=== PATIENT | male | born 1950 | race Caucasian/White ===

== ENCOUNTER 2023-04-24 05:22 | Day surgery (SDC) | payer MEDICARE, OTHER, SELFPAY ==
[2023-04-24] VITALS (9 sets, daily range): BP systolic 101–150; BP diastolic 61–85; PULSE 53–84; RESP 16; TEMP 36–36.6; O2SAT 94–100; BMI 27.6
--- OUTSIDE RECORDS SUMMARY | 2023-04-24 05:40 | XMS RPT_ITS | CCD ---
Author Name Unknown Address [address] [facility] [facility] [id number] [place] [address] Organization [facility] Care Team Providers Care Fireman Name Role Phone Unavailable Unavailable Em PLUNKETT MD, ARIN Lewis Primary Care Physician [phone] ADDI Alcazar Attending JOURDAN Storey Consulting Em PLUNKETT MD, ARIN Lewis Primary [facility] Rebecca emery PHYSICIAN, NONE Attending Em PLUNKETT MD, ARIN Primary [facility] BA Boss DO Attending Em PLUNKETT MD, ARIN Lewis Primary Care BA Boss DO Attending Em ALEJANDRO PA-C, JUSTICE Fuentes Attending Em PLUNKETT MD, [facility] Primary [facility] Rebecca DILLON MD, DR SHIRLEY Umaña Attending Jesica Rosario MD, [facility] Primary [facility] UnavailITZEL Powers PA-C Attending Em PLUNKETT MD, [facility] Primary Care Rebecca PLUNKETT MD, ARIN Lewis Attending Rebecca PLUNKETT MD, [facility] Primary Care Rebecca PLUNKETT MD, ARIN Attending Rebecca PLUNKETT MD, [facility] Primary Care Unavailtania QUICK MD, DR RODRIGUEZ Attending Jesica Rosario MD, [facility] Primary [facility] Rebecca PLUNKETT MD, [facility] Primary Care ITZEL Nino PA-C Attending Em PLUNKETT MD, [facility] Primary Care Rebecca PLUNKETT MD, ARIN Lewis Attending Rebecca PLUNKETT MD, [facility] Primary [facility] BA Boss DO Attending Em QUICK MD, DR RODRIGUEZ Attending Jesica Rosario MD, [facility] Primary [facility] Unavailtania emery Allergies Allergy Classification Reported Allergen(s) Allergy Type Date of Onset Reaction(s) Facility (2 sources) ibuprofen Drug Allergy 5 RASH AND SWELLING [facility] (1 source) Ibuprofen Drug Allergy [facility] [place] Repository Medications Current Medications Medication Drug Class(es) Dates Sig (Normalized) Sig (Original) amLODIPine 5 mg oral tablet (1 source) Dihydropyridine Calcium Channel Justo Start: 03-26-2023 amLODIPine 5 mg oral tablet Dose : 5 mg = 1 tab(s), Oral, qDay, # 90 tab(s), 3 Refill(s), Pharmacy: [facility], 170.2, cm, 03/26/23 14:58:00 EST, Height, kg, 03/26/23 14:58:00 EST, Dosing Weight Start Date: 03/26/23 Status: Ordered aspirin 81 mg delayed release oral tablet (4 sources) Platelet Aggregation Inhibitor, Nonsteroidal Anti-inflammatory Drug Start: 04-05-2022 aspirin 81 mg oral delayed release tablet Dose : 81 mg = 1 tab(s), Oral, qDay Start Date: 04/05/22 Status: Ordered Completed/Discontinued Medications Medication Drug Class(es) Dates Sig (Normalized) Sig (Original) [Cholesterol Med] , (2 sources) End: 10-28-2013 cholecalciferol 1000 unt oral tablet (4 sources) Vitamin D End: 11-05-2013 Problems Active Problems Problem Classification Problem Date Documented Da te Episodic/Chronic Congestive heart failure; nonhypertensive (5 sources) Chronic diastolic heart failure; Translations: [Chronic diastolic (congestive) heart failure] Onset: 11-15-2022 09-11-2021 Chronic Coronary atherosclerosis and other heart disease (6 sources) Coronary arteriosclerosis; Translations: [Atherosclerotic heart disease of [place] coronary artery without angina pectoris] Onset: 11-15-2022 11-29-2020 Chronic Diabetes mellitus without complication (6 sources) Diabetes mellitus; Translations: [Type 2 diabetes mellitus without complications] Onset: 02-10-2023 11-01-2020 Chronic Disorders of lipid metabolism (8 sources) Dyslipidemia; Translations: [Mixed hyperlipidemia] Onset: 07-24-2022 11-01-2020 Chronic Esophageal disorders (2 sources) Gastro-esophageal reflux disease without esophagitis; Translations: [Gastro-esophageal reflux disease without esophagitis] Onset: 07-24-2022 Chronic Essential hypertension (2 sources) Hypertensive disorder 12-04-2022 Chronic Mood disorders (2 sources) Major depressive disorder, recurrent, mild; Translations: [Major depressive disorder, recurrent, mild] Onset: 02-10-2023 Chronic Nutritional deficiencies (2 sources) Vitamin D deficiency, unspecified; Translations: [Vitamin D deficiency, unspecified] Onset: 07-24-2022 Chronic Other nutritional; endocrine; and metabolic disorders (2 sources) Obesity, unspecified; Translations: [Obesity, unspecified] Onset: 07-24-2022 Chronic Other nutritional; endocrine; and metabolic disorders (2 sources) Amyloidosis, unspecified; Translations: [Amyloidosis, unspecified] Onset: 07-24-2022 Chronic Residual codes; unclassified (2 sources) Obstructive sleep apnea (adult) (pediatric); Translations: [Obstructive sleep apnea (adult) (pediatric)] Onset: 07-24-2022 Chronic Residual codes; unclassified (2 sources) Other insomnia; Translations: [Other insomnia] Onset: 07-24-2022 Chronic Unclassified (2 sources) Patient encounter status 12-04-2022 Past or Other Problems Problem Classification Problem Date Documented Da te Episodic/Chronic Diabetes mellitus without complication (2 sources) Hyperglycemia, unspecified; Translations: [Hyperglycemia, unspecified] Onset: 07-24-2022 Episodic Nonspecific chest pain (8 sources) Chest pain; Translations: [Other chest pain] Onset: 07-24-2022 10-31-2020 Episodic Results Test Name Value Interpretation Reference Range Facil ity Vital Signs Date Time Vital Sign Value Performing Clinician Faci lity 12-13-2022 11:04-0400 Diastolic Blood Pressure Non-Invasive 71 1 BA [employer] [facility] 12-13-2022 11:04-0400 Heart rate 63 /min [facility] 12-13-2022 11:04-0400 Respiratory rate 14 /min [facility] 12-13-2022 11:04-0400 Systolic Blood Pressure Non-Invasive 122 1 [facility] 12-13-2022 10:11-0400 Diastolic Blood Pressure Non-Invasive 84 1 BA BLUMER DO [facility] 12-13-2022 10:11-0400 Heart rate 71 /min BA BLUMER DO [facility] 12-13-2022 10:11-0400 Respiratory rate 12 /min BA BLUMER DO [facility] 12-13-2022 10:11-0400 Systolic Blood Pressure Non-Invasive 116 1 BA BLUMER DO [facility] 12-13-2022 09:59-0400 Diastolic Blood Pressure Non-Invasive 79 1 BA BLUMER DO [facility] 12-13-2022 09:59-0400 Heart rate 74 /min BA BLUMER DO [facility] 12-13-2022 09:59-0400 Respiratory rate 12 /min BA BLUMER DO [facility] 12-13-2022 09:59-0400 Systolic Blood Pressure Non-Invasive 122 1 BA BLUMER DO [facility] 12-13-2022 09:28-0400 Body temperature 98.06 [degF] BA BLUMER DO [facility] 12-13-2022 09:25-0400 Respiratory Rate - Anes 11 br/min BA BLUMER DO [facility] 12-13-2022 09:20-0400 Respiratory Rate - Anes 13 br/min BA BLUMER DO [facility] 12-13-2022 09:15-0400 Respiratory Rate - Anes 1 br/min BA BLUMER DO [facility] 12-13-2022 08:10-0400 Body weight 27.96 kg/m2 BA BLUMER DO [facility] 12-13-2022 07:31-0400 Body height 170.2 cm BA BLUMER DO [facility] 12-13-2022 07:31-0400 Body temperature 95.72 [degF] BA BLUMER DO [facility] 12-13-2022 07:31-0400 Body weight 81 kg BA BLUMER DO [facility] 12-13-2022 07:31-0400 Heart rate 66 /min BA BLUMER DO [facility] 04-06-2022 15:47-0500 Heart rate 61 /min REBEKA LUQUE MD [facility] 04-06-2022 14:26-0500 Blood Pressure Location REBEKA LUQUE MD [facility] 04-06-2022 14:26-0500 Blood Pressure Method REBEKA LUQUE MD [facility] 04-06-2022 14:26-0500 Body temperature 97.52 [degF] REBEKA LUQUE MD [facility] 04-06-2022 14:26-0500 Diastolic Blood Pressure Non-Invasive 64 1 REBEKA LUQUE MD [facility] 04-06-2022 14:26-0500 Heart rate 63 /min REBEKA LUQUE MD [facility] 04-06-2022 14:26-0500 Respiratory rate 18 /min REBEKA LUQUE MD [facility] 04-06-2022 14:26-0500 Systolic Blood Pressure Non-Invasive 132 1 REBEKA LUQUE MD [facility] 04-06-2022 12:27-0500 Heart rate 66 /min REBEKA LUQUE MD [address] [place] [address] 04-06-2022 12:17-0500 Diastolic Blood Pressure Non-Invasive 78 1 REBEKA LUQUE MD [address] [place] [address] 04-06-2022 12:17-0500 Heart rate 63 /min REBEKA LUQUE MD [address] [place] [address] 04-06-2022 12:17-0500 Mean blood pressure 93 mm[Hg] REBEKA LUQUE MD [address] [place] [address] 04-06-2022 12:17-0500 Respiratory rate 17 /min REBEKA LUQUE MD [address] [place] [address] 04-06-2022 12:17-0500 Systolic Blood Pressure Non-Invasive 139 1 REBEKA LUQUE MD [address] [place] [address] 04-06-2022 06:21-0500 Body temperature 97.7 [degF] REBEKA LUQUE MD [address] [place] [address] 04-06-2022 06:21-0500 Diastolic Blood Pressure Non-Invasive 82 1 REBEKA LUQUE MD [address] [place] [address] 04-06-2022 06:21-0500 Respiratory rate 18 /min REBEKA LUQUE MD [address] [place] [address] 04-06-2022 06:21-0500 Systolic Blood Pressure Non-Invasive 124 1 REBEKA LUQUE MD [address] [place] [address] 04-06-2022 00:14-0500 Body temperature 97.88 [degF] REBEKA LUQUE MD [address] [place] [address] 04-06-2022 00:09-0500 Body height 170.2 cm REBEKA LUQUE MD [address] [place] [address] 04-06-2022 00:09-0500 Body weight 81 kg REBEKA LUQUE MD [address] [place] [address] 04-06-2022 00:09-0500 Body weight 27.96 kg/m2 REBEKA LUQUE MD [address] [place] [address] 04-05-2022 18:45-0500 Mean blood pressure 98 mm[Hg] REBEKA LUQUE MD [facility] 04-05-2022 17:00-0500 Mean blood pressure 89 mm[Hg] REBEKA LUQUE MD [facility] 04-05-2022 15:21-0500 Heart rate 59 /min REBEKA LUQUE MD [facility] 04-05-2022 11:24-0500 Body temperature 97.7 [degF] REBEKA LUQUE MD [facility] 04-05-2022 11:24-0500 Body weight 82 kg REBEKA LUQUE MD [facility] 04-05-2022 11:24-0500 Heart rate 60 /min REBEKA LUQUE MD [facility] 07-04-2021 11:19-0500 Body height 170.2 cm BA BLUMER DO [facility] 07-04-2021 11:19-0500 Body weight 77.7 kg BA BLUMER DO [facility] 07-04-2021 11:19-0500 Body weight 26.82 kg/m2 BA BLUMER DO [facility] 07-04-2021 11:19-0500 diastolic 62 mm[Hg] BA BLUMER DO [facility] 07-04-2021 11:19-0500 Heart rate 62 /min BA BLUMER DO [facility] 07-04-2021 11:19-0500 systolic 98 mm[Hg] BA BLUMER DO [facility] Encounters Encounter Date Encounter Type Care Provider Facility Start: 04-16-2023 ambulatory JUSTICE Blanco lity:A Start: 03-28-2023 End: 03-29-2023 ambulatory ITZEL MORALES PA-C Facility:A Start: 03-28-2023 End: 03-28-2023 Patient encounter procedure ITZEL MORALES PA-C [facility] Start: 03-27-2023 End: 03-28-2023 ambulatory ARIN PLUNKETT MD Facility:A Start: 03-19-2023 End: 03-20-[address] MICHAEL QUICK MD Facility:A Start: 02-10-2023 End: 02-15-2023 ambulatory ARIN PLUNKETT MD Facility:A Start: 12-13-2022 End: 12-13-2022 ambulatory ARIN PLUNKETT MD Facility:B Start: 12-13-2022 End: 12-13-2022 SAME DAY STAY BA KENNY DO [facility] Start: 12-11-2022 End: 03-12-[address] SHIRLEY DILLON MD Facility:A Start: 12-03-2022 End: 12-04-2022 ambulatory ARIN PLUNKETT MD Facility:B Start: 11-30-2022 End: 11-30-2022 Emergency department patient visit [employer].DESIREE Johanadionisio Alcazar Facility:[facility] Start: 11-15-2022 End: 11-20-[address] MICHAEL QUICK MD Facility:A Start: 07-24-2022 End: 07-29-2022 ambulatory ARIN PLUNKETT MD Facility:A Start: 04-26-2022 ambulatory ARIN PLUNKETT MD Fa cility:A Start: 04-05-2022 End: 04-06-2022 Evaluation and management of inpatient REBEKA LUQUE MD [facility] Start: 07-04-2021 End: 07-04-2021 Admission to establishment BA KENNY DO [facility] Start: 12-28-2015 End: 01-26-2016 Discharged Recurring Kely Reno Work Phone (unformatted): [phone] [facility] Start: 12-07-2015 End: 12-27-2015 Discharged Recurring Kely Reno Work Phone (unformatted): [phone] [facility] Procedures Date Procedure Procedure Detail Performing Clinician Start: 04-06-2022 Cardiovascular stres s test using pharmacologic stress agent BA ZEKESHABNAM MARTI Immunizations Immunization Date Immunization Notes Care Provider Fa marie 05-04-2021 COVID-19, mRNA, LNP- S, PF, 100 mcg or 50 mcg dose; Translations: [Moderna COVID-19 Vaccine] BA KENNY [facility] 07-31-2020 COVID-19, mRNA, LNP- S, PF, 100 mcg or 50 mcg dose; Translations: [Moderna COVID-19 Vaccine] BA KENNY DO [facility] 07-03-2020 COVID-19, mRNA, LNP- S, PF, 100 mcg or 50 mcg dose; Translations: [Moderna COVID-19 Vaccine] BA KENNY DO [facility] no vaccine administered [facility] Payers Date Payer Category Payer Unknown [id number] 2014 Medicare [id number] 1950 Unknown [id number] 2.16.8 [id number] 1950 Unknown [id number] 2.16.8 [id number] 1950 Unknown [id number] 2.16.8 [id number] 1950 Unknown [id number] 2.16.8 [id number] 1950 Unknown [id number] 2.16.8 [id number] 1950 Unknown [id number] 2.16.8 [id number] 1950 Unknown [id number] 2.16.8 [id number] 1950 Unknown [id number] 2.16.8 [id number] 1950 Unknown [id number] 2.16.8 [id number] 1950 Unknown [id number] 2.16.8 40.1.307217.3.579.2. 1950 Unknown [id number] 2.16.8 [id number] 1950 Unknown [id number] 2.16.8 40.1.838354.3.579.2. 1950 Unknown [id number] 2.16.8 [id number] Medicare [id number] Unknown [id number]. [id number] Social History Date Type Detail Facility Unknown if ever smoked [facility] Start: 10-31-2020 Never smoked shyam rogers (finding) [facility] Sex Assigned At [facility] Functional Status Date Assessment Result Facility 12-13-2022 Functional Status bilateral knee high applied/on [facility] 12-13-2022 Functional Status Maintained [facility] 04-06-2022 Functional Status 100 [facility] 04-06-2022 Functional Status Room check performed [facility] 04-06-2022 Functional Status [facility] 04-06-2022 Functional Status [facility] 04-06-2022 Functional Status [facility] 04-06-2022 Functional Status Sensory Defici ts None, Hearing deficit, left ear, Hearing deficit, right ear [facility] Mental Status Date Assessment Result Facility 12-13-2022 Mental Status Orientation Oriented x 4 [facility] 04-06-2022 Mental Status Orientation Oriented x 4 [facility] 04-06-2022 Mental Status [facility] 04-06-2022 Mental Status [facility] 04-06-2022 Mental Status [facility] Clinical Notes 04-05-2022 to 03-28-2023 Note Date & Type Note Facility 03-28-2023 Note Date of Service Date: 03/28/2023 Procedure: Exercise treadmill stress test Patient underwent exercise treadmill stress test using Alexandre protocol. Patient achieved 2 stages in 3 minutes and switched to lexiscan due to faliure to attain the target heart rate. Procedure: Lexiscan (regadenoson) chemical stress test Patient underwent a pharmacologic stress test using regadenoson. Total regadenoson dose of 0.4 mg was given as per protocol. The patient had a baseline heart rate of 57 bpm, which peaked at 117bpm. This represents 79% of the age-predicted maximal heart rate. The patient had a baseline blood pressure of 134/78mmHg and it changed to 154/66mmHg after the regadenoson administration. The patient did experience dyspnea, which all resolved at the end of the test. The patient's baseline EKG showed normal sinus. During the stress, there were no EKG changes suggestive of ischemia. IMPRESSION: EKG portion of the Lexiscan stress test is negative for inducible ischemia. The results of the nuclear portion of the Lexiscan stress test will be reported separately. The EKGs were also reviewed by the attending physician. See addendum to this note by the attending physician for additional comments. Digitally Signed by FALLON WESTBROOK MD on 03/28/2023 12:23 PM [facility] 03-28-2023 Note ORIGINAL EXAMINATION: CARDIAC SPECT03/28/2023 12:30 pm TECHNIQUE: Lexiscan dose: 0.4 mg IV Radiopharmaceutical (rest and stress doses): Tc-99m Sestamibi IV 8.6 and 24.8 mCi SPECT acquisition and processing: Images reconstructed into short, vertical long, and horizontal long axis planes. Wall motion evaluation and quantitative LVEF assessment. Low-dose attenuation correction CT. COMPARISON: April 06, 2022 HISTORY: Reason for Exam: CAD, chest pain, preop clearance FINDINGS: Decreased perfusion involving the inferior wall on non-attenuation corrected post stress images resolves on attenuation corrected post-stress images, likely represents soft tissue attenuation. There is no convincing stress-induced reversible perfusion abnormality. No fixed perfusion defect is seen to suggest infarction. The left ventricular end-diastolic volume is 84 mL. Gated imaging demonstrates no regional wall motion abnormality. Estimated left ventricular ejection fraction is 57 %. TID ratio is normal at 1.01. Low-dose attenuation correction CT demonstrates mild coronary atherosclerotic calcifications. The heart is normal in size. No pericardial or pleural effusion is seen. There is no focal consolidation. IMPRESSION: 1. No convincing stress-induced reversible perfusion abnormality is seen. 2. Cardiac systolic function is normal with estimated ejection fraction of 57 %. Interpreted by: Lindy Alcaraz MD Preliminary Report By: Lindy Alcaraz MD Electronically signed By Lindy Alcaraz MD Dictated Date: 03/28/2023 12:43:30 PM Prelim Date: 03/28/2023 12:58:27 PM Sign Date: 03/28/2023 12:58:27 PM Ordering Provider: [facility] 03-28-2023 Note Date of Service Date: 03/28/2023 Procedure: Exercise treadmill stress test Patient underwent exercise treadmill stress test using Alexandre protocol. Patient achieved 2 stages in 3 minutes and switched to lexiscan due to faliure to attain the target heart rate. Procedure: Lexiscan (regadenoson) chemical stress test Patient underwent a pharmacologic stress test using regadenoson. Total regadenoson dose of 0.4 mg was given as per protocol. The patient had a baseline heart rate of 57 bpm, which peaked at 117bpm. This represents 79% of the age-predicted maximal heart rate. The patient had a baseline blood pressure of 134/78mmHg and it changed to 154/66mmHg after the regadenoson administration. The patient did experience dyspnea, which all resolved at the end of the test. The patient's baseline EKG showed normal sinus. During the stress, there were no EKG changes suggestive of ischemia. IMPRESSION: EKG portion of the Lexiscan stress test is negative for inducible ischemia. The results of the nuclear portion of the Lexiscan stress test will be reported separately. The EKGs were also reviewed by the attending physician. See addendum to this note by the attending physician for additional comments. Digitally Signed by FALLON WESTBROOK MD on 03/28/2023 12:23 PM [facility] 12-13-2022 Hospital Discharg e instructions Patient Education 12/13/2022 10:13:09 Nausea and Vomiting, Adult Nausea and Vomiting, Adult Nausea is the feeling that you have an upset stomach or that you are about to vomit. Vomiting is when stomach contents are thrown up and out of the mouth as a result of nausea. Vomiting can make you feel weak and cause you to become dehydrated. Dehydration can make you feel tired and thirsty, cause you to have a dry mouth, and decrease how often you urinate. Older adults and people with other diseases or a weak disease-fighting system (immune system) are at higher risk for dehydration. It is important to treat your nausea and vomiting as told by your health care provider. Follow these instructions at home: Watch your symptoms for any changes. Tell your health care provider about them. Follow these instructions to care for yourself at home. Eating and drinking Take an oral rehydration solution (ORS). This is a drink that is sold at pharmacies and retail stores. Drink clear fluids slowly and in small amounts as you are able. Clear fluids include water, ice chips, low-calorie sports drinks, and fruit juice that has water added (diluted fruit juice). Eat bland, ucgo-ws-oczpcf foods in small amounts as you are able. These foods include bananas, applesauce, rice, lean meats, toast, and crackers. Avoid fluids that contain a lot of sugar or caffeine, such as energy drinks, sports drinks, and soda. Avoid alcohol. Avoid spicy or fatty foods. General instructions Take xxob-wir-lfbggup and prescription medicines only as told by your health care provider. Drink enough fluid to keep your urine pale yellow. Wash your hands often using soap and water. If soap and water are not available, use hand septic tank servicer. Make sure that all people in your household wash their hands well and often. Rest at home while you recover. Watch your condition for any changes. Breathe slowly and deeply when you feel nauseated. Keep all follow-up visits as told by your health care provider. This is important. Contact a health care provider if: Your symptoms get worse. You have new symptoms. You have a fever. You cannot drink fluids without vomiting. Your nausea does not go away after 2 days. You feel light-headed or dizzy. You have a headache. You have muscle cramps. You have a rash. You have pain while urinating. Get help right away if: You have pain in your chest, neck, arm, or jaw. You feel extremely weak or you faint. You have persistent vomiting. You have vomit that is bright red or looks like black coffee grounds. You have bloody or black stools or stools that look like tar. You have a severe headache, a stiff neck, or both. You have severe pain, cramping, or bloating in your abdomen. You have difficulty breathing, or you are breathing very quickly. Your heart is beating very quickly. Your skin feels cold and clammy. You feel confused. You have signs of dehydration, such as: ?Dark urine, very little urine, or no urine. ?Cracked lips. ?Dry mouth. ?Sunken eyes. ?Sleepiness. ?Weakness. These symptoms may represent a serious problem that is an emergency. Do not wait to see if the symptoms will go away. Get medical help right away. Call your local emergency services (911 in the [place] Do not drive yourself to the hospital. Summary Nausea is the feeling that you have an upset stomach or that you are about to vomit. As nausea gets worse, it can lead to vomiting. Vomiting can make you feel weak and cause you to become dehydrated. Follow instructions from your health care provider about eating and drinking to prevent dehydration. Take pzcn-ofb-nkkymxx and prescription medicines only as told by your health care provider. Contact your health care provider if your symptoms get worse, or you have new symptoms. Keep all follow-up visits as told by your health care provider. This is important. This information is not intended to replace advice given to you by your health care provider. Make sure you discuss any questions you have with your health care provider. Document Released: 04/14/2006 Document Revised: 08/06/2019 Document Reviewed: 09/22/2018 [employer] Patient Education 2020 [employer]. 12/13/2022 10:13:04 9. AO Nasal/Sinus Surgery, Care of Bleeding 12/12/2017(CUSTOM) Nasal/Sinus Surgery Instructions Care of Nasal bleeding These instructions give you information on caring for yourself after your procedure. HOME CARE 1. Maintain head elevation. 2. Do not blow nose. 3. Use ice compresses (NOT an ice bag) as needed for facial swelling. 4. If nasal packing has been placed-do not attempt to remove it yourself. 5. Use saline nasal spray (ex. Red Willow, Skyforest, etc.) 2-3 sprays each nostril, every hour. 6. Use bacitracin ointment on Q-tip just inside nostrils to keep moist. 7. Sneeze with your mouth open. 8. Continue the medications given upon discharge as directed. 9. You should not drive for twenty-four (24) hours after surgery or while you are taking the prescribed pain medication. If you have any questions or concerns regarding your care of comfort, please call the office. IF YOU HAVE AN EMERGENCY, AND ARE UNABLE TO REACH THE DOCTOR, CALL OR GO TO THE EMERGENCY ROOM. FOR PATIENTS WHO HAVE HAD GENERAL ANESTHESIA: The medicine used to put you to sleep will be acting in your body for the next 24 hours, so you might feel a little sleepy. This feeling will slowly wear off. Because the medicine is still in your system, for the next 24 hours, the adult patient should not: - Drive a car, operate machinery or power tools - Drink any alcoholic drinks (not even beer) - Make any important decisions, ie: sign important papers. Children should rest at home, but may be up and about according to doctor's instructions. THE ABOVE POST-OPERATIVE INSTRUCTIONS HAVE BEEN EXPLAINED TO ME AND I UNDERSTAND THEM. THE TIME OF THE LAST PAIN PILL FROM RECOVERY WAS Document Released: 07/11/2009 Document Revised: 07/06/2012 Document Reviewed: 07/11/2009 ExitCare Patient Information 2015 [employer]. This information is not intended to replace advice given to you by your health care provider. Make sure you discuss any questions you have with your health care provider. 12/13/2022 10:13:02 9. AO Nasal/Sinus Surgery, Care After 12/12/2017(CUSTOM) Nasal/Sinus Surgery Instructions Care After These instructions give you information on caring for yourself after your procedure. HOME CARE You have undergone surgery and should therefore allow 10-14 days to rest. 1. You have undergone surgery and should therefore allow 10-14 days to rest. You should avoid any heavy lifting or bending over. 2. Maintain head elevation. 3. Do not blow your nose. 4. Use ice compresses (NOT an ice bag) as needed for facial swelling. 5. If nasal packing has been placed-do not attempt to remove it yourself. 6. Use bacitracin ointment on Q-tip just inside nostrils to keep moist. 7. Sneeze with your mouth open. 8. Continue the medications given upon discharge as directed. 9. You should not drive for twenty-four (24) after surgery or while you are taking the prescribed pain medication. If you have any questions or concerns regarding your care of comfort, please call the office. IF YOU HAVE AN EMERGENCY, AND ARE UNABLE TO REACH THE DOCTOR, CALL OR GO TO THE EMERGENCY ROOM. FOR PATIENTS WHO HAVE HAD GENERAL ANESTHESIA: The medicine used to put you to sleep will be acting in your body for the next 24 hours, so you might feel a little sleepy. This feeling will slowly wear off. Because the medicine is still in your system, for the next 24 hours, the adult patient should not: - Drive a car, operate machinery or power tools - Drink any alcoholic drinks (not even beer) - Make any important decisions, ie: sign important papers. Children should rest at home, but may be up and about according to doctor's instructions. THE ABOVE POST-OPERATIVE INSTRUCTIONS HAVE BEEN EXPLAINED TO ME AND I UNDERSTAND THEM. THE TIME OF THE LAST PAIN PILL FROM RECOVERY WAS Document Released: 07/11/2009 Document Revised: 07/06/2012 Document Reviewed: 07/11/2009 ExitCare Patient Information 2014 [employer]. This information is not intended to replace advice given to you by your health care provider. Make sure you discuss any questions you have with your health care provider. Follow Up Care 11/21/2022 14:40:10 With:BA KENNY Address: [address] [place] [address]- [phone] Business (1) When:12/23/2022 08:00:00 [facility] 12-13-2022 Summary of episod e note Discharge Instructions Thank you for allowing [facility] to assist you with your healthcare needs. The following is important discharge information regarding your hospital visit. Your Care Team ARIN PLUNKETT MD What to do next Scheduled Follow-Up Appointments Appointment Type When Where Contact InformationOT Treatment 12/16/2022 09:30 AM EDT [facility] OT Treatment 12/20/2022 09:30 AM EDT [facility] OT Treatment 12/23/2022 09:30 AM EDT [facility] OT Treatment 12/27/2022 10:15 AM EDT [facility] Follow Up Appointments Follow Up with BA KENNY When 12/23/2022 08:00 AM EDT Where: [address], [place] [phone] [facility] (1) The Following Activity and Diet Have Been Ordered for You Discharge Activity - Ordered -- Follow the post-operative/post-procedure activity instructions provided by your physician's office., 12/13/22 10:01:00 EDT Discharge Diet - Ordered -- Follow the post-operative/post-procedure diet instructions provided by your physician's office., 12/13/22 10:01:00 EDT The Following Equipment Has Been Ordered for You Discharge Home Equipment Discharge Wound Care - Ordered -- Follow the post-operative/post-procedure wound care instructions provided by your physician's office., 12/13/22 10:01:00 EDT Someone Will Contact You Regarding These Home Health Referrals No home referrals have been ordered for you. No one will call you. Allergies NKA No Known Medication Allergies Medications Please ask your primary doctor or pharmacist before taking any other medication not listed, including over the counter drugs, herbal medications, vitamins and or supplements as they may interact with your home medications. What How Much When Instructions Last Dose Unchanged aspirin (aspirin 81 mg oral delayed release tablet) 1 tab(s) by mouth Once a day Unchanged atorvastatin (atorvastatin 80 mg oral tablet) 1 tab(s) by mouth Once a day Unchanged busPIRone (busPIRone 15 mg oral tablet) 1 tab(s) by mouth Two (2) times a day Unchanged cholecalciferol (Vitamin D3) 1 tab(s) by mouth Once a day Unchanged clopidogrel (clopidogrel 75 mg oral tablet) 1 tab(s) by mouth Once a day Unchanged DME (Blood Pressure Cuff) See instructions Check and Log Blood Pressure Daily Unchanged escitalopram (escitalopram 20 mg oral tablet) 1 tab(s) by mouth Once a day Unchanged esomeprazole (NexIUM 40 mg oral delayed release capsule) 1 cap by mouth Two (2) times a day Unchanged isosorbide mononitrate (isosorbide mononitrate 30 mg oral tablet, extended release) 1 tab(s) by mouth Once a day (in the morning) Unchanged metFORMIN (metFORMIN 500 mg oral tablet (IR)) 1 tab(s) by mouth Once a day Unchanged multivitamin (Multivitamin) 1 tab(s) by mouth Once a day Unchanged multivitamin with minerals (Emergen-C) 1 tab by mouth Three (3) times a day Unchanged nitroGLYcerin (nitroglycerin 0.4 mg sublingual tablet) 1 tab(s) under the tongue Every 5 minutes as needed for for chest pain q 5min X3 Unchanged zinc gluconate (zinc (as gluconate) 50 mg oral tablet) 1 tab(s) by mouth Once a day Please take this list to your next doctor s visit. Bring all medications you take, including over the counter medications, herbals and other supplements with you to your doctor s visit. Patients and families are reminded to discard old lists and to update any records with all medication providers or retail pharmacies. Education Materials Nausea and Vomiting, Adult Nausea is the feeling that you have an upset stomach or that you are about to vomit. Vomiting is when stomach contents are thrown up and out of the mouth as a result of nausea. Vomiting can make you feel weak and cause you to become dehydrated. Dehydration can make you feel tired and thirsty, cause you to have a dry mouth, and decrease how often you urinate. Older adults and people with other diseases or a weak disease-fighting system (immune system) are at higher risk for dehydration. It is important to treat your nausea and vomiting as told by your health care provider. Follow these instructions at home: Watch your symptoms for any changes. Tell your health care provider about them. Follow these instructions to care for yourself at home. Eating and drinking Take an oral rehydration solution (ORS). This is a drink that is sold at pharmacies and retail stores. Drink clear fluids slowly and in small amounts as you are able. Clear fluids include water, ice chips, low-calorie sports drinks, and fruit juice that has water added (diluted fruit juice). Eat bland, rgzp-ha-gtzvlx foods in small amounts as you are able. These foods include bananas, applesauce, rice, lean meats, toast, and crackers. Avoid fluids that contain a lot of sugar or caffeine, such as energy drinks, sports drinks, and soda. Avoid alcohol. Avoid spicy or fatty foods. General instructions Take elpu-iae-iylpvav and prescription medicines only as told by your health care provider. Drink enough fluid to keep your urine pale yellow. Wash your hands often using soap and water. If soap and water are not available, use hand septic tank servicer. Make sure that all people in your household wash their hands well and often. Rest at home while you recover. Watch your condition for any changes. Breathe slowly and deeply when you feel nauseated. Keep all follow-up visits as told by your health care provider. This is important. Contact a health care provider if: Your symptoms get worse. You have new symptoms. You have a fever. You cannot drink fluids without vomiting. Your nausea does not go away after 2 days. You feel light-headed or dizzy. You have a headache. You have muscle cramps. You have a rash. You have pain while urinating. Get help right away if: You have pain in your chest, neck, arm, or jaw. You feel extremely weak or you faint. You have persistent vomiting. You have vomit that is bright red or looks like black coffee grounds. You have bloody or black stools or stools that look like tar. You have a severe headache, a stiff neck, or both. You have severe pain, cramping, or bloating in your abdomen. You have difficulty breathing, or you are breathing very quickly. Your heart is beating very quickly. Your skin feels cold and clammy. You feel confused. You have signs of dehydration, such as: ? Dark urine, very little urine, or no urine. ? Cracked lips. ? Dry mouth. ? Sunken eyes. ? Sleepiness. ? Weakness. These symptoms may represent a serious problem that is an emergency. Do not wait to see if the symptoms will go away. Get medical help right away. Call your local emergency services (911 in the [place] Do not drive yourself to the hospital. Summary Nausea is the feeling that you have an upset stomach or that you are about to vomit. As nausea gets worse, it can lead to vomiting. Vomiting can make you feel weak and cause you to become dehydrated. Follow instructions from your health care provider about eating and drinking to prevent dehydration. Take hjja-eqs-hzadvpb and prescription medicines only as told by your health care provider. Contact your health care provider if your symptoms get worse, or you have new symptoms. Keep all follow-up visits as told by your health care provider. This is important. This information is not intended to replace advice given to you by your health care provider. Make sure you discuss any questions you have with your health care provider. Document Released: 04/14/2006 Document Revised: 08/06/2019 Document Reviewed: 09/22/2018 [employer] Patient Education 2020 [employer]. Nasal/Sinus Surgery Instructions Care of Nasal bleeding These instructions give you information on caring for yourself after your procedure. HOME CARE 1. Maintain head elevation. 2. Do not blow nose. 3. Use ice compresses (NOT an ice bag) as needed for facial swelling. 4. If nasal packing has been placed-do not attempt to remove it yourself. 5. Use saline nasal spray (ex. Red Willow, Skyforest, etc.) 2-3 sprays each nostril, every hour. 6. Use bacitracin ointment on Q-tip just inside nostrils to keep moist. 7. Sneeze with your mouth open. 8. Continue the medications given upon discharge as directed. 9. You should not drive for twenty-four (24) hours after surgery or while you are taking the prescribed pain medication. If you have any questions or concerns regarding your care of comfort, please call the office. IF YOU HAVE AN EMERGENCY, AND ARE UNABLE TO REACH THE DOCTOR, CALL OR GO TO THE EMERGENCY ROOM. FOR PATIENTS WHO HAVE HAD GENERAL ANESTHESIA: The medicine used to put you to sleep will be acting in your body for the next 24 hours, so you might feel a little sleepy. This feeling will slowly wear off. Because the medicine is still in your system, for the next 24 hours, the adult patient should not: - Drive a car, operate machinery or power tools - Drink any alcoholic drinks (not even beer) - Make any important decisions, ie: sign important papers. Children should rest at home, but may be up and about according to doctor's instructions. THE ABOVE POST-OPERATIVE INSTRUCTIONS HAVE BEEN EXPLAINED TO ME AND I UNDERSTAND THEM. THE TIME OF THE LAST PAIN PILL FROM RECOVERY WAS Document Released: 07/11/2009 Document Revised: 07/06/2012 Document Reviewed: 07/11/2009 [employer] Patient Information 2015 [employer]. This information is not intended to replace advice given to you by your health care provider. Make sure you discuss any questions you have with your health care provider. Nasal/Sinus Surgery Instructions Care After These instructions give you information on caring for yourself after your procedure. HOME CARE You have undergone surgery and should therefore allow 10-14 days to rest. 1. You have undergone surgery and should therefore allow 10-14 days to rest. You should avoid any heavy lifting or bending over. 2. Maintain head elevation. 3. Do not blow your nose. 4. Use ice compresses (NOT an ice bag) as needed for facial swelling. 5. If nasal packing has been placed-do not attempt to remove it yourself. 6. Use bacitracin ointment on Q-tip just inside nostrils to keep moist. 7. Sneeze with your mouth open. 8. Continue the medications given upon discharge as directed. 9. You should not drive for twenty-four (24) after surgery or while you are taking the prescribed pain medication. If you have any questions or concerns regarding your care of comfort, please call the office. IF YOU HAVE AN EMERGENCY, AND ARE UNABLE TO REACH THE DOCTOR, CALL OR GO TO THE EMERGENCY ROOM. FOR PATIENTS WHO HAVE HAD GENERAL ANESTHESIA: The medicine used to put you to sleep will be acting in your body for the next 24 hours, so you might feel a little sleepy. This feeling will slowly wear off. Because the medicine is still in your system, for the next 24 hours, the adult patient should not: - Drive a car, operate machinery or power tools - Drink any alcoholic drinks (not even beer) - Make any important decisions, ie: sign important papers. Children should rest at home, but may be up and about according to doctor's instructions. THE ABOVE POST-OPERATIVE INSTRUCTIONS HAVE BEEN EXPLAINED TO ME AND I UNDERSTAND THEM. THE TIME OF THE LAST PAIN PILL FROM RECOVERY WAS Document Released: 07/11/2009 Document Revised: 07/06/2012 Document Reviewed: 07/11/2009 ExitCare Patient Information 2015 [employer] [facility]. This information is not intended to replace advice given to you by your health care provider. Make sure you discuss any questions you have with your health care provider. Additional Information VACCINATE! IT SAVES LIVES! Members of the community who have not yet received the COVID-19 vaccine and would like to receive it can visit one of [facility] vaccine clinics. There are many vaccine clinic locations within the [facility]. For locations and available times, please visit https://[email or web address].o gao.gov/. It is important to note that some COVID mobile vaccine clinics are held outdoors and may be canceled in rainy or stormy conditions. To learn more about pediatric vaccinations (ages 5-11), we invite you to visit the [employer] webpage. https://[email or web address]/p [email or web address]-Dbxgw-Cqlycqfytpm-Freq lyuruc-Rorba-Owpaapyuo.html To learn more about the COVID-19 vaccine, we invite you to visit the CDC website for a list of frequently asked questions.https://www.cdc.gov/co ronavirus/2019-ncov/vaccines/faq .html [employer] Patient Portal Access Instructions: Stay connected with your healthcare team and access your personal medical information anytime with the [employer] Patient Portal. Please follow the directions below to create your [employer] account: 1.Access the email account you provided upon registration to the hospital/physician office.2.Look for an invitation email from [facility].3.Open the email and access the invitation link: Accept Invitation to [facility].4.Fill in the required cordero to create your account. To access your account, visit [employer] [employer]. Click the blue button labeled Access Patient Portal and then log in with the username and password that you created in the steps above. You will be able to view your test results, lab results, a summary of your visits, upcoming appointments and more. There is also a convenient messaging option where you can send secure messages to your provider. In addition, you will have the ability to download any documents or summaries to your computer and/or send the information securely to a physician. Remember that your healthcare information is confidential, so carefully consider who you will allow to register [facility] for access to your information. You can also access the [facility] on the [facility] onel. Simply click on Patient Portal and then log into your account. If you would like to receive a full copy of your medical records, please contact the [facility] Medical Records Department by calling [phone], Friday through Friday between 8 a.m. and 4:30 p.m. HOW TO SAFELY DISPOSE OF PRESCRIPTION MEDICATIONS Please use one of the following methods to safely dispose of your unused medications. 1.Use a drug disposal kit: the drug disposal pouch allows you to safely discard your old and unused drugs. Ask your nurse to give you one when you are discharged.2.Visit a local take-back location: Many local pharmacies and police departments have programs that collect old and unwanted prescription drugs. Call your local pharmacy or go to http://MoPals/3M6Hr1s to find one close to you.3.Make use of household items: Use cat litter or old coffee grounds to dispose medications if other options are not available. Mix your drugs with these household products, seal them in an airtight container and throw it into the garbage. Call [facility]: [phone] to be sure your drugs can be disposed of in this way. Some medicines may require a different approach.4.Never flush your medications down the toilet. IF YOU HAVE BEEN PRESCRIBED AN OPIOID FOR PAIN If you have been prescribed an opioid (such as hydrocodone, oxycodone or morphine), it is critical to understand the possible side effects and risks of opioid pain medications. Even when taken as directed, opioids can have several side effects including: Tolerance, meaning you might need to take more of a medication for the same pain relief. Nausea, vomiting and/or constipation. Sleepiness, dizziness, dry mouth, confusion, depression or itching. Physical dependence, meaning you have withdrawal symptoms when a medication is stopped, can develop within a few days. KNOW YOUR RESPONSIBILITIES It is important to know exactly how much and how often to take the opioid pain medications you are prescribed. Never take opioids in higher amounts or more often than prescribed. Do not combine opioids with alcohol or other drugs that cause drowsiness, such as benzodiazepines, also known as benzos, including diazepam and alprazolam, muscle relaxants or sleep aids. Never sell or share prescription opioids. This is illegal. Store opioids in a secure place and out of reach of others (including children, family, friends and visitors). The last page of this document has been signed and retained as a CHART COPY. Signatures Patient Education Materials Nausea and Vomiting, Adult 9. AO Nasal/Sinus Surgery, Care of Bleeding 12/12/2017(CUSTOM) 9. AO Nasal/Sinus Surgery, Care After 12/12/2017(CUSTOM) Medication Leaflets My discharge plan and instructions have been reviewed and explained to me and I,YOAV JUDD V understand my current condition and have read and understand these discharge instructions. I have received a written copy of the plan/instructions. If I have questions, I am aware that I should contact my doctor. Patient/Mirror Maker Signature: Date/Time: Relationship to Patient: Witness Name/Signature: Date/Time: [facility] 12-13-2022 Anesthesiology Consult note Patient: YOAV JUDD V Age: 72 years Sex: Male : 1950 Associated Diagnoses: None Author: ELVIS SALVADOR Preoperative Information Anesthesia history Patient's history: negative. Family's history: negative. Health Status Allergies: Allergic Reactions (Selected) NKA No Known Medication Allergies, Allergies (2) ActiveReaction NKANone Documented No Known Medication AllergiesNone Documented Current medications: (Selected) Prescriptions Prescribed Blood Pressure Cuff: See Instructions, Check and Log Blood Pressure Daily, 1 EA, 0 Refill(s) atorvastatin 80 mg oral tablet: 80 mg, 1 tab(s), Oral, qDay, 30 tab(s), 0 Refill(s) clopidogrel 75 mg oral tablet: 75 mg, 1 tab(s), Oral, qDay, 90 tab(s), 3 Refill(s) isosorbide mononitrate 30 mg oral tablet, extended release: 30 mg, 1 tab(s), Oral, qAM, 90 tab(s), 3 Refill(s) nitroglycerin 0.4 mg sublingual tablet: 0.4 mg, 1 tab(s), Sublingual, q5min, PRN: for chest pain q 5min X3, 25 tab(s), 11 Refill(s) Documented Medications Documented Emergen-C: 1 tab, Oral, TID, 0 Refill(s) Multivitamin: 1 tab(s), Oral, qDay, 0 Refill(s) NexIUM 40 mg oral delayed release capsule: 40 mg, 1 cap(s), Oral, BID, 0 Refill(s) Vitamin D3: 1 tab(s), Oral, qDay, 0 Refill(s) aspirin 81 mg oral delayed release tablet: 81 mg, 1 tab(s), Oral, qDay busPIRone 15 mg oral tablet: 15 mg, 1 tab(s), Oral, BID, 30 tab(s), 0 Refill(s) escitalopram 20 mg oral tablet: 20 mg, 1 tab(s), Oral, qDay metFORMIN 500 mg oral tablet (IR): 500 mg, 1 tab(s), Oral, qDay, 0 Refill(s) zinc (as gluconate) 50 mg oral tablet: 50 mg, 1 tab(s), Oral, qDay, 0 Refill(s), No qualifying data available Problem list: Medical Chronic diastolic HF (heart failure) / SNOMED CT 3026782802 / Confirmed CAD in [place] artery / SNOMED CT 92287339 / Confirmed Diabetes / SNOMED CT 269046449 / Confirmed Dyslipidemia / SNOMED CT 8946226906 / Confirmed Hypertension / SNOMED CT 2933384028 / Confirmed Pre-op evaluation / SNOMED CT 711230526 / Confirmed, Active Problems (9) CAD in [place] artery Chronic diastolic HF (heart failure) Diabetes Dyslipidemia GERD (gastroesophageal reflux disease) Glasses Hypertension Pre-op evaluation Sleep apnea Histories Past Medical History: No active or resolved past medical history items have been selected or recorded. Family History: Angina Father () Procedure history: Stress testing using pharmacologic-induced stress ([id number]) on 04/06/2022 at 72 Years. Comments: 04/09/2022 9:32 Savannah Winn RN 04/06/22 IMPRESSION:Negative tomographic images for ischemia or infarction. The gated study demonstrates normal wall motion normal ejection fraction. Compared to prior study dated 09/13/2020, there has been no change 11/28/2020 14:58 Kasia Burton CMA 09/23/2020 IMPRESSION: Unremarkable myocardial perfusion study. Echocardiogram ([id number]) on 04/06/2022 at 72 Years. Comments: 04/09/2022 9:32 Savannah Winn RN 04/06/22 Summary: 1. Left ventricle: The cavity size is normal. Wall thickness is mildly increased. Concentric Left Ventricular Hypertrophy Systolic function is normal. The estimated ejection fraction is 55-60%. Wall motion is normal; there are no regional wall motion abnormalities. Normal diastolic function. 2. Aortic valve: There is trivial regurgitation. 3. Mitral valve: There is mild regurgitation. 4. Right ventricle: Systolic pressure is at the upper limits of normal. The RV systolic pressure by Doppler is 35 mm Hg. 5. Inferior vena cava: The IVC is upper normal-sized at 2.0 cm Respirophasic diameter changes are in the normal range (> 50%). 11/30/2020 13:46 Natalia Johnson RT(N) Summary: 1. Left ventricle: The cavity size is normal. Wall thickness is normal. Systolic function is normal. The estimated ejection fraction is 55-60%. Wall motion is normal; there are no regional wall motion abnormalities. Normal diastolic function. 2. Right ventricle: The RV systolic pressure by Doppler is 22 mm Hg. 3. Right atrium: The estimated right atrial pressure is 3 mm Hg. Functional endoscopic sinus surgery ([id number]) on 07/13/2021 at 71 Years. Cardiac catheterization ([id number]) on 11/10/2020 at 70 Years. 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 Left ventricle: Systolic function is normal. The estimated ejection fraction is 60-65%. 2. LAD: Distal vessel lesion: There is a 50% stenosis. 3. 1st diagonal: Proximal vessel lesion: There is a 65% stenosis. IMPRESSIONS: 1. Medical management , case was discussed with Dr Rueda 2. Moderate coronary artery disease. Carpal tunnel ([id number]). Appendectomy; ([id number]). Cataracts ([id number]). Comments: 07/04/2021 11:09 Jody Brandon RN BILATERAL Social History Social & Psychosocial Habits Alcohol 12/04/2022 Use: Past Frequency: 1-2 times per month Employment/School 12/04/2022 Status: Retired Substance Abuse 12/04/2022 Use: Never Tobacco 12/04/2022 Tobacco Use: Never (less than 100 in l Home/Environment 12/04/2022 Marital Status of Patient if Patient Independent Adult: Nutrition/Health 12/04/2022 Caffeine intake amount: Drinks 1 soda weekly . Physical Examination No qualifying data available General: Alert and oriented. Airway: Normal temporomandibular joint mobility. Mallampati classification: II (soft palate, fauces, uvula visible). Dentition Evaluation: Missing teeth, Denies loose/chipped teeth. Respiratory: Lungs are clear to auscultation, Respirations are non-labored. Cardiovascular: Normal rate, Regular rhythm. Neurologic: Alert, Oriented. Review / Management Results review: No qualifying data available , Lab results: 12/13/2022 7:29 EDT SN - Preop - CTm Pt in SDS Room 12/13/2022 7:24 . Assessment and Plan [place] [employer]esthesiologists (ASA) physical status classification: Class III. Anesthetic Preoperative Plan Anesthetic technique: General. Maintenance airway: Oral endotracheal tube. Postoperative pain management: Per surgeon. Risks discussed: nausea, vomiting, sore throat, dental injury, hypotension, allergic reaction, serious complications. Informed consent: signed by patient. Digitally Signed by ELVSI SALVADOR on 12/13/2022 07:42 AM [facility] 04-06-2022 Hospital Discharg e instructions Patient Education 04/06/2022 17:40:46 Angina, [id number] Angina Angina is very bad discomfort or pain in the chest, neck, arm, jaw, or back. The discomfort is caused by a lack of blood in the middle layer of the heart wall (myocardium). What are the causes? This condition is caused by a buildup of fat and cholesterol (plaque) in your arteries (atherosclerosis). This buildup narrows the arteries and makes it hard for blood to flow. What increases the risk? You are more likely to develop this condition if: You have high levels of cholesterol in your blood. You have high blood pressure (hypertension). You have diabetes. You have a family history of heart disease. You are not active, or you do not exercise enough. You feel sad (depressed). You have been treated with high energy rays (radiation) on the left side of your chest. Other risk factors are: Using tobacco. Being very overweight (obese). Eating a diet high in unhealthy fats (saturated fats). Having stress, or being exposed to things that cause stress. Using drugs, such as cocaine. Women have a greater risk for angina if: They are older than 55. They have stopped having their period (are in postmenopause). What are the signs or symptoms? Common symptoms of this condition in both men and women may include: Chest pain, which may: ?Feel like a crushing or squeezing in the chest. ?Feel like a tightness, pressure, fullness, or heaviness in the chest. ?Last for more than a few minutes at a time. ?Stop and come back (recur) after a few minutes. Pain in the neck, arm, jaw, or back. Heartburn or upset stomach (indigestion) for no reason. Being short of breath. Feeling sick to your stomach (nauseous). Sudden cold sweats. Women and people with diabetes may have other symptoms that are not usual, such as feeling: Tired (fatigue). Worried or nervous (anxious) for no reason. Weak for no reason. Dizzy or passing out (fainting). How is this treated? This condition may be treated with: Medicines. These are given to: ?Prevent blood clots. ?Prevent heart attack. ?Relax blood vessels and improve blood flow to the heart (nitrates). ?Reduce blood pressure. ?Improve the pumping action of the heart. ?Reduce fat and cholesterol in the blood. A procedure to widen a narrowed or blocked artery in the heart (angioplasty). Surgery to allow blood to go around a blocked artery (coronary artery bypass surgery). Follow these instructions at home: Medicines Take vftd-zot-vlzoooh and prescription medicines only as told by your doctor. Do not take these medicines unless your doctor says that you can: ?NSAIDs. These include: ?Ibuprofen. ?Naproxen. ?Vitamin supplements that have vitamin A, vitamin E, or both. ?Hormone therapy that contains estrogen with or without progestin. Eating and drinking Eat a heart-healthy diet that includes: ?Lots of fresh fruits and vegetables. ?Whole grains. ?Low-fat (lean) protein. ?Low-fat dairy products. Follow instructions from your doctor about what you cannot eat or drink. Activity Follow an exercise program that your doctor tells you. Talk with your doctor about joining a program to help improve the health of your heart (cardiac rehab). When you feel tired, take a break. Plan breaks if you know you are going to feel tired. Lifestyle Do not use any products that contain nicotine or tobacco. This includes cigarettes, e-cigarettes, and chewing tobacco. If you need help quitting, ask your doctor. If your doctor says you can drink alcohol: ?Limit how much you use to: ?0 1 drink a day for women who are not . ? 0 2 drinks a day for men. ?Be aware of how much alcohol is in your drink. In the [place] one drink equals: ?One 12 oz bottle of beer (355 mL). ?One 5 oz glass of wine (148 mL). ?One 1 oz glass of hard liquor (44 mL). General instructions Stay at a healthy weight. If your doctor tells you to do so, work with him or her to lose weight. Learn to deal with stress. If you need help, ask your doctor. Keep your vaccines up to date. Get a flu shot every year. Talk with your doctor if you feel sad. Take a screening test to see if you are at risk for depression. Work with your doctor to manage any other health problems that you have. These may include diabetes or high blood pressure. Keep all follow-up visits as told by your doctor. This is important. Get help right away if: You have pain in your chest, neck, arm, jaw, or back, and the pain: ?Lasts more than a few minutes. ?Comes back. ?Does not get better after you take medicine under your tongue (sublingual nitroglycerin). ?Keeps getting worse. ?Comes more often. You have any of these problems for no reason: ?Sweating a lot. ?Heartburn or upset stomach. ?Shortness of breath. ?Trouble breathing. ?Feeling sick to your stomach. ?Throwing up (vomiting). ?Feeling more tired than normal. ?Feeling nervous or worrying more than normal. ?Weakness. You are suddenly dizzy or light-headed. You pass out. These symptoms may be an emergency. Do not wait to see if the symptoms will go away. Get medical help right away. Call your local emergency services (911 in the [place] Do not drive yourself to the hospital. Summary Angina is very bad discomfort or pain in the chest, neck, arm, neck, or back. Symptoms include chest pain, heartburn or upset stomach for no reason, and shortness of breath. Women or people with diabetes may have symptoms that are not usual, such as feeling nervous or worried for no reason, weak for no reason, or tired. Take all medicines only as told by your doctor. You should eat a heart-healthy diet and follow an exercise program. This information is not intended to replace advice given to you by your health care provider. Make sure you discuss any questions you have with your health care provider. Document Released: 09/30/2008 Document Revised: 11/30/2018 Document Reviewed: 11/30/2018 [employer] Patient Education 2020 [employer] 04/06/2022 17:40:32 Pharmacologic Stress Echocardiogram, Care After Pharmacologic Stress Echocardiogram, Care After This sheet gives you information about how to care for yourself after your procedure. Your health care provider may also give you more specific instructions. If you have problems or questions, contact your health care provider. What can I expect after the procedure? You should not get new symptoms after your procedure. Talk with your health care provider if you experience unusual symptoms at home. Follow these instructions at home: After your stress test, you should be able to return to your usual activities and diet. Take mwow-hjw-aijyykz and prescription medicines only as told by your health care provider. Keep all follow-up visits as told by your health care provider. This is important. Contact a health care provider if: Your skin is red, swollen, or itchy where the IV tube was inserted into your vein (injection site). You feel dizzy or light-headed, especially if the sensation does not go away or it gets worse. You have a fast or irregular heartbeat. You have nausea or vomiting that does not go away. You feel short of breath. Get help right away if: You develop pain or pressure: ?In your chest. ?In your jaw or neck. ?Between your shoulder blades. ?Spreading (radiating) down your left arm. You faint. You have trouble breathing. This information is not intended to replace advice given to you by your health care provider. Make sure you discuss any questions you have with your health care provider. Document Released: 02/02/2014 Document Revised: 12/18/2016 Document Reviewed: 12/18/2016 [employer] Patient Education 2020 [employer]. Follow Up Care 04/05/2022 10:33:55 With:ARIN PLUNKETT MD, Internal Medicine, [facility] Address: [place] [address] [place] [phone]- [phone] When: Unknown Comments:Call your PCP to get a hospital discharge follow-up in 2-4 days. [facility] 04-06-2022 Note Discharge Instructions Thank you for allowing [facility] to assist you with your healthcare needs. The following is important discharge information regarding your hospital visit. Your Care Team ARIN PLUNKETT MD Your Diagnosis Chest pain What to do next Scheduled Follow-Up Appointments Appointment Type When With Where Contact InformationCV OV 04/09/2022 02:00 PM EST ITZEL MORALES PA-C [facility] App[facility]ments Follow Up with ARIN PLUNKETT MD, Internal Medicine, [facility] When Why: Call your PCP to get a hospital discharge follow-up in 2-4 days. Where: [facility] [address] [place] [phone] The Following Activity and Diet Have Been Ordered for You Discharge Activity - Ordered -- Activity As Tolerated, 04/06/22 17:27:00 EST Discharge Diet - Ordered -- Type of Diet: Regular Diet, Diet Restrictions: Cardiac diet, Calories Permitted: 1800 kcal, Sodium limit: 2 gm, Fats limit: Low, 04/06/22 17:27:00 EST The Following Equipment Has Been Ordered for You No qualifying data available. The Following Treatments Have Been Ordered for You Discharge Labs No qualifying data available. Discharge Radiology No qualifying data available. Other Therapies No qualifying data available. Post Acute Orders No qualifying data available. Someone Will Contact You Regarding These Home Health Referrals No home referrals have been ordered for you. No one will call you. Allergies NKA No Known Medication Allergies Medications Please ask your primary doctor or pharmacist before taking any other medication not listed, including over the counter drugs, herbal medications, vitamins and or supplements as they may interact with your home medications. What How Much When Instructions Last Dose Unchanged aspirin (aspirin 81 mg oral delayed release tablet) 1 tab(s) by mouth Once a day Unchanged atorvastatin (atorvastatin 40 mg oral tablet) 1 tab(s) by mouth Once a day Unchanged cholecalciferol (Vitamin D3) 1 tab(s) by mouth Once a day Unchanged clopidogrel (clopidogrel 75 mg oral tablet) 1 tab(s) by mouth Once a day Unchanged escitalopram (escitalopram 20 mg oral tablet) 1 tab(s) by mouth Once a day Unchanged esomeprazole (NexIUM 40 mg oral delayed release capsule) 1 cap by mouth Two (2) times a day Unchanged fenofibrate (fenofibrate 145 mg oral tablet) 1 tab(s) by mouth Once a day Unchanged isosorbide mononitrate (isosorbide mononitrate 30 mg oral tablet, extended release) 1 tab(s) by mouth Once a day (in the morning) Unchanged metFORMIN (metFORMIN 500 mg oral tablet (IR)) 1 tab(s) by mouth Two (2) times a day Unchanged multivitamin (Multivitamin) 1 tab(s) by mouth Once a day Unchanged multivitamin with minerals (Emergen-C) 1 tab by mouth Three (3) times a day Unchanged nitroGLYcerin (nitroglycerin 0.4 mg sublingual tablet) 1 tab(s) under the tongue Every 5 minutes as needed for for chest pain q 5min X3 Unchanged ranolazine (ranolazine 1000 mg oral tablet, extended release) 1 tab(s) by mouth Two (2) times a day Unchanged zinc gluconate (zinc (as gluconate) 50 mg oral tablet) 1 tab(s) by mouth Once a day What How Much When Comments Stop Taking metoprolol (metoprolol succinate 25 mg oral TABLET extended release) 1 tab(s) by mouth Once a day Please take this list to your next doctor s visit. Bring all medications you take, including over the counter medications, herbals and other supplements with you to your doctor s visit. Patients and families are reminded to discard old lists and to update any records with all medication providers or retail pharmacies. Medication Leaflets nitroglycerin (topical) (BRAD VICK er in) Nitro-Bid, Nitrol Appli-Kit What is the most important information I should know about nitroglycerin topical? You should not use this medicine if you are also using medicine to treat pulmonary arterial hypertension or erectile dysfunction. What is nitroglycerin topical? Nitroglycerin is used to prevent attacks of chest pain (angina). Nitroglycerin may also be used for purposes not listed in this medication guide. What should I discuss with my healthcare provider before using nitroglycerin topical? You should not use nitroglycerin if you are allergic to it. Do not take erectile dysfunction medicine (Viagra, Cialis, Levitra, Stendra, Staxyn, sildenafil, avanafil, tadalafil, vardenafil) while you are using nitroglycerin topical. Using erectile dysfunction medicine with nitroglycerin can cause a sudden and serious decrease in blood pressure. Tell your doctor if you have ever had: a heart attack or other heart problems; a stroke or head injury; or low blood pressure. Tell your doctor if you are or . How should I use nitroglycerin topical? Follow all directions on your prescription label and read all medication guides or instruction sheets. Use the medicine exactly as directed. Nitroglycerin topical is usually applied 2 times daily. Follow your doctor's instructions carefully. Wash your hands after applying this medicine. Do not take by mouth. Topical medicine is for use only on the skin. Nitroglycerin topical will not work fast enough to treat an angina attack that has already begun. Your doctor may prescribe an oral form of nitroglycerin (tablet, capsule, spray) to treat an angina attack. Talk with your doctor if any of your medicines do not seem to work as well in treating or preventing angina attacks. If you need to have any type of surgery or dental work, tell the surgeon or dentist ahead of time that you are using nitroglycerin topical. Store this medicine at room temperature, away from moisture and heat. What happens if I miss a dose? Apply the medicine as soon as you can, but skip the missed dose if it is almost time for your next dose. Do not apply two doses at one time. What happens if I overdose? Seek emergency medical attention or call the Poison Help line at . An overdose of nitroglycerin can be fatal. Overdose symptoms may include a severe throbbing headache, confusion, fever, fast or pounding heartbeats, dizziness, vision problems, vomiting, bloody diarrhea, trouble breathing, cold or clammy skin, fainting, and seizures. What should I avoid while using nitroglycerin topical? Avoid getting up too fast from a sitting or lying position, or you may feel dizzy. Drinking alcohol can increase certain side effects such as dizziness, drowsiness, feeling light-headed, or fainting. What are the possible side effects of nitroglycerin topical? Get emergency medical help if you have signs of an allergic reaction: hives; difficult breathing; swelling of your face, lips, tongue, or throat. Call your doctor at once if you have: pounding heartbeats or fluttering in your chest; slow heart rate; a light-headed feeling, like you might pass out; or heart attack symptoms--chest pain or pressure, pain spreading to your jaw or shoulder, nausea, sweating. Nitroglycerin can cause severe headaches. These headaches may gradually become less severe as you continue to use nitroglycerin. Do not stop taking this medicine. Ask your doctor before using any headache pain medication. Common side effects may include: flushing (warmth, redness, or tingly feeling); headache; or dizziness. This is not a complete list of side effects and others may occur. Call your doctor for medical advice about side effects. You may report side effects to FDA at 1-120-MCH-5599. What other drugs will affect nitroglycerin topical? Tell your doctor about all your current medicines, especially: aspirin, heparin; medicine used to treat blood clots; blood pressure medication; or ergot medicine--dihydroergotamine, ergotamine, ergonovine, methylergonovine. This list is not complete and many other drugs may affect nitroglycerin. This includes prescription and hhay-jyb-lwcuzcw medicines, vitamins, and herbal products. Not all possible drug interactions are listed here. Where can I get more information? Your pharmacist can provide more information about nitroglycerin topical. Remember, keep this and all other medicines out of the reach of children, never share your medicines with others, and use this medication only for the indication prescribed. Every effort has been made to ensure that the information provided by [employer]. ('[employer]') is accurate, up-to-date, and complete, but no guarantee is made to that effect. Drug information contained herein may be time sensitive. [employer] information has been compiled for use by healthcare practitioners and consumers in the [place] and therefore [employer] does not warrant that uses outside of the [place] are appropriate, unless specifically indicated otherwise. [employer] drug information does not endorse drugs, diagnose patients or recommend therapy. [employer] drug information is an informational resource designed to assist licensed healthcare practitioners in caring for their patients and/or to serve consumers viewing this service as a supplement to, and not a substitute for, the expertise, skill, knowledge and judgment of healthcare practitioners. The absence of a warning for a given drug or drug combination in no way should be construed to indicate that the drug or drug combination is safe, effective or appropriate for any given patient. [employer] does not assume any responsibility for any aspect of healthcare administered with the aid of information [employer] provides. The information contained herein is not intended to cover all possible uses, directions, precautions, warnings, drug interactions, allergic reactions, or adverse effects. If you have questions about the drugs you are taking, check with your doctor, nurse or pharmacist. Copyright 5506-9184 [employer]. Version: 3.01. Revision Date: 02/26/2019. Education Materials Angina Angina is very bad discomfort or pain in the chest, neck, arm, jaw, or back. The discomfort is caused by a lack of blood in the middle layer of the heart wall (myocardium). What are the causes? This condition is caused by a buildup of fat and cholesterol (plaque) in your arteries (atherosclerosis). This buildup narrows the arteries and makes it hard for blood to flow. What increases the risk? You are more likely to develop this condition if: You have high levels of cholesterol in your blood. You have high blood pressure (hypertension). You have diabetes. You have a family history of heart disease. You are not active, or you do not exercise enough. You feel sad (depressed). You have been treated with high energy rays (radiation) on the left side of your chest. Other risk factors are: Using tobacco. Being very overweight (obese). Eating a diet high in unhealthy fats (saturated fats). Having stress, or being exposed to things that cause stress. Using drugs, such as cocaine. Women have a greater risk for angina if: They are older than 55. They have stopped having their period (are in postmenopause). What are the signs or symptoms? Common symptoms of this condition in both men and women may include: Chest pain, which may: ? Feel like a crushing or squeezing in the chest. ? Feel like a tightness, pressure, fullness, or heaviness in the chest. ? Last for more than a few minutes at a time. ? Stop and come back (recur) after a few minutes. Pain in the neck, arm, jaw, or back. Heartburn or upset stomach (indigestion) for no reason. Being short of breath. Feeling sick to your stomach (nauseous). Sudden cold sweats. Women and people with diabetes may have other symptoms that are not usual, such as feeling: Tired (fatigue). Worried or nervous (anxious) for no reason. Weak for no reason. Dizzy or passing out (fainting). How is this treated? This condition may be treated with: Medicines. These are given to: ? Prevent blood clots. ? Prevent heart attack. ? Relax blood vessels and improve blood flow to the heart (nitrates). ? Reduce blood pressure. ? Improve the pumping action of the heart. ? Reduce fat and cholesterol in the blood. A procedure to widen a narrowed or blocked artery in the heart (angioplasty). Surgery to allow blood to go around a blocked artery (coronary artery bypass surgery). Follow these instructions at home: Medicines Take zqfv-jwz-dwddrco and prescription medicines only as told by your doctor. Do not take these medicines unless your doctor says that you can: ? NSAIDs. These include: ? Ibuprofen. ? Naproxen. ? Vitamin supplements that have vitamin A, vitamin E, or both. ? Hormone therapy that contains estrogen with or without progestin. Eating and drinking Eat a heart-healthy diet that includes: ? Lots of fresh fruits and vegetables. ? Whole grains. ? Low-fat (lean) protein. ? Low-fat dairy products. Follow instructions from your doctor about what you cannot eat or drink. Activity Follow an exercise program that your doctor tells you. Talk with your doctor about joining a program to help improve the health of your heart (cardiac rehab). When you feel tired, take a break. Plan breaks if you know you are going to feel tired. Lifestyle Do not use any products that contain nicotine or tobacco. This includes cigarettes, e-cigarettes, and chewing tobacco. If you need help quitting, ask your doctor. If your doctor says you can drink alcohol: ? Limit how much you use to: ? 0 1 drink a day for women who are not . ? 0 2 drinks a day for men. ? Be aware of how much alcohol is in your drink. In the [place] one drink equals: ? One 12 oz bottle of beer (355 mL). ? One 5 oz glass of wine (148 mL). ? One 1 oz glass of hard liquor (44 mL). General instructions Stay at a healthy weight. If your doctor tells you to do so, work with him or her to lose weight. Learn to deal with stress. If you need help, ask your doctor. Keep your vaccines up to date. Get a flu shot every year. Talk with your doctor if you feel sad. Take a screening test to see if you are at risk for depression. Work with your doctor to manage any other health problems that you have. These may include diabetes or high blood pressure. Keep all follow-up visits as told by your doctor. This is important. Get help right away if: You have pain in your chest, neck, arm, jaw, or back, and the pain: ? Lasts more than a few minutes. ? Comes back. ? Does not get better after you take medicine under your tongue (sublingual nitroglycerin). ? Keeps getting worse. ? Comes more often. You have any of these problems for no reason: ? Sweating a lot. ? Heartburn or upset stomach. ? Shortness of breath. ? Trouble breathing. ? Feeling sick to your stomach. ? Throwing up (vomiting). ? Feeling more tired than normal. ? Feeling nervous or worrying more than normal. ? Weakness. You are suddenly dizzy or light-headed. You pass out. These symptoms may be an emergency. Do not wait to see if the symptoms will go away. Get medical help right away. Call your local emergency services (911 in the [place] Do not drive yourself to the hospital. Summary Angina is very bad discomfort or pain in the chest, neck, arm, neck, or back. Symptoms include chest pain, heartburn or upset stomach for no reason, and shortness of breath. Women or people with diabetes may have symptoms that are not usual, such as feeling nervous or worried for no reason, weak for no reason, or tired. Take all medicines only as told by your doctor. You should eat a heart-healthy diet and follow an exercise program. This information is not intended to replace advice given to you by your health care provider. Make sure you discuss any questions you have with your health care provider. Document Released: 09/30/2008 Document Revised: 11/30/2018 Document Reviewed: 11/30/2018 [employer] Patient Education 2020 [employer]. Pharmacologic Stress Echocardiogram, Care After This sheet gives you information about how to care for yourself after your procedure. Your health care provider may also give you more specific instructions. If you have problems or questions, contact your health care provider. What can I expect after the procedure? You should not get new symptoms after your procedure. Talk with your health care provider if you experience unusual symptoms at home. Follow these instructions at home: After your stress test, you should be able to return to your usual activities and diet. Take rjga-mdu-pyrzwqb and prescription medicines only as told by your health care provider. Keep all follow-up visits as told by your health care provider. This is important. Contact a health care provider if: Your skin is red, swollen, or itchy where the IV tube was inserted into your vein (injection site). You feel dizzy or light-headed, especially if the sensation does not go away or it gets worse. You have a fast or irregular heartbeat. You have nausea or vomiting that does not go away. You feel short of breath. Get help right away if: You develop pain or pressure: ? In your chest. ? In your jaw or neck. ? Between your shoulder blades. ? Spreading (radiating) down your left arm. You faint. You have trouble breathing. This information is not intended to replace advice given to you by your health care provider. Make sure you discuss any questions you have with your health care provider. Document Released: 02/02/2014 Document Revised: 12/18/2016 Document Reviewed: 12/18/2016 [employer] Patient Education 2020 [employer] Additional Information VACCINATE! IT SAVES LIVES! Members of the community who have not yet received the COVID-19 vaccine and would like to receive it can visit one of [facility] vaccine clinics. There are many vaccine clinic locations within the [facility]. For locations and available times, please visit [email or web address] It is important to note that some COVID mobile vaccine clinics are held outdoors and may be canceled in rainy or stormy conditions. To learn more about pediatric vaccinations (ages 5-11), we invite you to visit the [employer] webpage. [email or web address] To learn more about the COVID-19 vaccine, we invite you to visit the [employer] website for a list of frequently asked questions. [email or web address] [employer] Patient Portal Access Instructions: Stay connected with your healthcare team and access your personal medical information anytime with the [facility] Patient Portal.If you would like a full copy of your medical records, please contact the [facility] Medical Records Department, Friday through Friday between 8a.m. and 4:30p.m. Please follow the directions below to access the portal: 1.Access the email account you provided upon registration to the [facility].2.Look for an invitation email from [facility].3.Open the email and access the invitation link: Accept Invitation to [facility].Fill in the required cordero to create your account. Sign into [email or web address] First with your username and password that you created in the above steps to stay up to date. You can then view a summary of results, a summary of your visits, and the ability to download your summaries to your computer or send the information securely to a physician. Remember that your healthcare information is confidential, so carefully consider who you will allow to register on the [employer] Patient Portal for access to your information. You can also access the [employer] Patient Portal on the [employer]. Simply click on Health Records under Health Data and then click on the [employer] logo. HOW TO SAFELY DISPOSE OF PRESCRIPTION MEDICATIONS Please use one of the following methods to safely dispose of your unused medications. 1.Use a drug disposal kit: the drug disposal pouch allows you to safely discard your old and unused drugs. Ask your nurse to give you one when you are discharged.2.Visit a local take-back location: Many local pharmacies and police departments have programs that collect old and unwanted prescription drugs. Call your local pharmacy or go to http://Poptip.SpaceClaim/1C8De0j to find one close to you.3.Make use of household items: Use cat litter or old coffee grounds to dispose medications if other options are not available. Mix your drugs with these household products, seal them in an airtight container and throw it into the garbage. Call [facility]: [phone] to be sure your drugs can be disposed of in this way. Some medicines may require a different approach.4.Never flush your medications down the toilet. IF YOU HAVE BEEN PRESCRIBED AN OPIOID FOR PAIN If you have been prescribed an opioid (such as hydrocodone, oxycodone or morphine), it is critical to understand the possible side effects and risks of opioid pain medications. Even when taken as directed, opioids can have several side effects including: Tolerance, meaning you might need to take more of a medication for the same pain relief. Nausea, vomiting and/or constipation. Sleepiness, dizziness, dry mouth, confusion, depression or itching. Physical dependence, meaning you have withdrawal symptoms when a medication is stopped, can develop within a few days. KNOW YOUR RESPONSIBILITIES It is important to know exactly how much and how often to take the opioid pain medications you are prescribed. Never take opioids in higher amounts or more often than prescribed. Do not combine opioids with alcohol or other drugs that cause drowsiness, such as benzodiazepines, also known as benzos, including diazepam and alprazolam, muscle relaxants or sleep aids. Never sell or share prescription opioids. This is illegal. Store opioids in a secure place and out of reach of others (including children, family, friends and visitors). The last page of this document has been signed and retained as a CHART COPY. Signatures Patient Education Materials Angina, Vaaw-iq-Rlsa Pharmacologic Stress Echocardiogram, Care After Medication Leaflets nitroglycerin (oral/sublingual) My discharge plan and instructions have been reviewed and explained to me and I,ROCK YOAV Pearl understand my current condition and have read and understand these discharge instructions. I have received a written copy of the plan/instructions. If I have questions, I am aware that I should contact my doctor. Patient/Mirror Maker Signature: Date/Time: Relationship to Patient: Witness Name/Signature: Date/Time: [facility] 04-06-2022 Note Discharge Instructions Thank you for allowing [facility] to assist you with your healthcare needs. The following is important discharge information regarding your hospital visit. Your Care Team ARIN PLUNKETT MD Your Diagnosis Chest pain What to do next Scheduled Follow-Up Appointments Appointment Type When With Where Contact InformationCV 04/09/2022 02:00 PM ITZEL OTERO PA-C [facility] Follow Up Appointments Follow Up with ARIN PLUNKETT MD, Internal Medicine, [facility] When Why: Call your PCP to get a hospital discharge follow-up in 2-4 days. Where: [facility] [address] [place] [address]- [phone] The Following Activity and Diet Have Been Ordered for You Discharge Activity - Ordered -- Activity As Tolerated, 04/06/22 17:27:00 EST Discharge Diet - Ordered -- Type of Diet: Regular Diet, Diet Restrictions: Cardiac diet, Calories Permitted: 1800 kcal, Sodium limit: 2 gm, Fats limit: Low, 04/06/22 17:27:00 EST The Following Equipment Has Been Ordered for You No qualifying data available. The Following Treatments Have Been Ordered for You Discharge Labs No qualifying data available. Discharge Radiology No qualifying data available. Other Therapies No qualifying data available. Post Acute Orders No qualifying data available. Someone Will Contact You Regarding These Home Health Referrals No home referrals have been ordered for you. No one will call you. Allergies NKA No Known Medication Allergies Medications Please ask your primary doctor or pharmacist before taking any other medication not listed, including over the counter drugs, herbal medications, vitamins and or supplements as they may interact with your home medications. What How Much When Instructions Last Dose Unchanged aspirin (aspirin 81 mg oral delayed release tablet) 1 tab(s) by mouth Once a day Unchanged atorvastatin (atorvastatin 40 mg oral tablet) 1 tab(s) by mouth Once a day Unchanged cholecalciferol (Vitamin D3) 1 tab(s) by mouth Once a day Unchanged clopidogrel (clopidogrel 75 mg oral tablet) 1 tab(s) by mouth Once a day Unchanged escitalopram (escitalopram 20 mg oral tablet) 1 tab(s) by mouth Once a day Unchanged esomeprazole (NexIUM 40 mg oral delayed release capsule) 1 cap by mouth Two (2) times a day Unchanged fenofibrate (fenofibrate 145 mg oral tablet) 1 tab(s) by mouth Once a day Unchanged isosorbide mononitrate (isosorbide mononitrate 30 mg oral tablet, extended release) 1 tab(s) by mouth Once a day (in the morning) Unchanged metFORMIN (metFORMIN 500 mg oral tablet (IR)) 1 tab(s) by mouth Two (2) times a day Unchanged multivitamin (Multivitamin) 1 tab(s) by mouth Once a day Unchanged multivitamin with minerals (Emergen-C) 1 tab by mouth Three (3) times a day Unchanged nitroGLYcerin (nitroglycerin 0.4 mg sublingual tablet) 1 tab(s) under the tongue Every 5 minutes as needed for for chest pain q 5min X3 Unchanged ranolazine (ranolazine 1000 mg oral tablet, extended release) 1 tab(s) by mouth Two (2) times a day Unchanged zinc gluconate (zinc (as gluconate) 50 mg oral tablet) 1 tab(s) by mouth Once a day What How Much When Comments Stop Taking metoprolol (metoprolol succinate 25 mg oral TABLET extended release) 1 tab(s) by mouth Once a day Please take this list to your next doctor s visit. Bring all medications you take, including over the counter medications, herbals and other supplements with you to your doctor s visit. Patients and families are reminded to discard old lists and to update any records with all medication providers or retail pharmacies. Medication Leaflets nitroglycerin (topical) (BRAD VICK er in) Nitro-Bid, Nitrol Appli-Kit What is the most important information I should know about nitroglycerin topical? You should not use this medicine if you are also using medicine to treat pulmonary arterial hypertension or erectile dysfunction. What is nitroglycerin topical? Nitroglycerin is used to prevent attacks of chest pain (angina). Nitroglycerin may also be used for purposes not listed in this medication guide. What should I discuss with my healthcare provider before using nitroglycerin topical? You should not use nitroglycerin if you are allergic to it. Do not take erectile dysfunction medicine (Viagra, Cialis, Levitra, Stendra, Staxyn, sildenafil, avanafil, tadalafil, vardenafil) while you are using nitroglycerin topical. Using erectile dysfunction medicine with nitroglycerin can cause a sudden and serious decrease in blood pressure. Tell your doctor if you have ever had: a heart attack or other heart problems; a stroke or head injury; or low blood pressure. Tell your doctor if you are or . How should I use nitroglycerin topical? Follow all directions on your prescription label and read all medication guides or instruction sheets. Use the medicine exactly as directed. Nitroglycerin topical is usually applied 2 times daily. Follow your doctor's instructions carefully. Wash your hands after applying this medicine. Do not take by mouth. Topical medicine is for use only on the skin. Nitroglycerin topical will not work fast enough to treat an angina attack that has already begun. Your doctor may prescribe an oral form of nitroglycerin (tablet, capsule, spray) to treat an angina attack. Talk with your doctor if any of your medicines do not seem to work as well in treating or preventing angina attacks. If you need to have any type of surgery or dental work, tell the surgeon or dentist ahead of time that you are using nitroglycerin topical. Store this medicine at room temperature, away from moisture and heat. What happens if I miss a dose? Apply the medicine as soon as you can, but skip the missed dose if it is almost time for your next dose. Do not apply two doses at one time. What happens if I overdose? Seek emergency medical attention or call the Poison Help line at . An overdose of nitroglycerin can be fatal. Overdose symptoms may include a severe throbbing headache, confusion, fever, fast or pounding heartbeats, dizziness, vision problems, vomiting, bloody diarrhea, trouble breathing, cold or clammy skin, fainting, and seizures. What should I avoid while using nitroglycerin topical? Avoid getting up too fast from a sitting or lying position, or you may feel dizzy. Drinking alcohol can increase certain side effects such as dizziness, drowsiness, feeling light-headed, or fainting. What are the possible side effects of nitroglycerin topical? Get emergency medical help if you have signs of an allergic reaction: hives; difficult breathing; swelling of your face, lips, tongue, or throat. Call your doctor at once if you have: pounding heartbeats or fluttering in your chest; slow heart rate; a light-headed feeling, like you might pass out; or heart attack symptoms--chest pain or pressure, pain spreading to your jaw or shoulder, nausea, sweating. Nitroglycerin can cause severe headaches. These headaches may gradually become less severe as you continue to use nitroglycerin. Do not stop taking this medicine. Ask your doctor before using any headache pain medication. Common side effects may include: flushing (warmth, redness, or tingly feeling); headache; or dizziness. This is not a complete list of side effects and others may occur. Call your doctor for medical advice about side effects. You may report side effects to FDA at 4-489-EBA-7530. What other drugs will affect nitroglycerin topical? Tell your doctor about all your current medicines, especially: aspirin, heparin; medicine used to treat blood clots; blood pressure medication; or ergot medicine--dihydroergotamine, ergotamine, ergonovine, methylergonovine. This list is not complete and many other drugs may affect nitroglycerin. This includes prescription and ymob-skg-xldscyg medicines, vitamins, and herbal products. Not all possible drug interactions are listed here. Where can I get more information? Your pharmacist can provide more information about nitroglycerin topical. Remember, keep this and all other medicines out of the reach of children, never share your medicines with others, and use this medication only for the indication prescribed. Every effort has been made to ensure that the information provided by [employer]. ('[employer]') is accurate, up-to-date, and complete, but no guarantee is made to that effect. Drug information contained herein may be time sensitive. [employer] information has been compiled for use by healthcare practitioners and consumers in the [place] and therefore [employer] does not warrant that uses outside of the [place] are appropriate, unless specifically indicated otherwise. [employer] drug information does not endorse drugs, diagnose patients or recommend therapy. [employer] drug information is an informational resource designed to assist licensed healthcare practitioners in caring for their patients and/or to serve consumers viewing this service as a supplement to, and not a substitute for, the expertise, skill, knowledge and judgment of healthcare practitioners. The absence of a warning for a given drug or drug combination in no way should be construed to indicate that the drug or drug combination is safe, effective or appropriate for any given patient. [employer] does not assume any responsibility for any aspect of healthcare administered with the aid of information [employer] provides. The information contained herein is not intended to cover all possible uses, directions, precautions, warnings, drug interactions, allergic reactions, or adverse effects. If you have questions about the drugs you are taking, check with your doctor, nurse or pharmacist. Copyright 4742-7909 [employer]. Version: 3.01. Revision Date: 02/26/2019. Education Materials Angina Angina is very bad discomfort or pain in the chest, neck, arm, jaw, or back. The discomfort is caused by a lack of blood in the middle layer of the heart wall (myocardium). What are the causes? This condition is caused by a buildup of fat and cholesterol (plaque) in your arteries (atherosclerosis). This buildup narrows the arteries and makes it hard for blood to flow. What increases the risk? You are more likely to develop this condition if: You have high levels of cholesterol in your blood. You have high blood pressure (hypertension). You have diabetes. You have a family history of heart disease. You are not active, or you do not exercise enough. You feel sad (depressed). You have been treated with high energy rays (radiation) on the left side of your chest. Other risk factors are: Using tobacco. Being very overweight (obese). Eating a diet high in unhealthy fats (saturated fats). Having stress, or being exposed to things that cause stress. Using drugs, such as cocaine. Women have a greater risk for angina if: They are older than 55. They have stopped having their period (are in postmenopause). What are the signs or symptoms? Common symptoms of this condition in both men and women may include: Chest pain, which may: ? Feel like a crushing or squeezing in the chest. ? Feel like a tightness, pressure, fullness, or heaviness in the chest. ? Last for more than a few minutes at a time. ? Stop and come back (recur) after a few minutes. Pain in the neck, arm, jaw, or back. Heartburn or upset stomach (indigestion) for no reason. Being short of breath. Feeling sick to your stomach (nauseous). Sudden cold sweats. Women and people with diabetes may have other symptoms that are not usual, such as feeling: Tired (fatigue). Worried or nervous (anxious) for no reason. Weak for no reason. Dizzy or passing out (fainting). How is this treated? This condition may be treated with: Medicines. These are given to: ? Prevent blood clots. ? Prevent heart attack. ? Relax blood vessels and improve blood flow to the heart (nitrates). ? Reduce blood pressure. ? Improve the pumping action of the heart. ? Reduce fat and cholesterol in the blood. A procedure to widen a narrowed or blocked artery in the heart (angioplasty). Surgery to allow blood to go around a blocked artery (coronary artery bypass surgery). Follow these instructions at home: Medicines Take ltpa-eqh-lvbvjym and prescription medicines only as told by your doctor. Do not take these medicines unless your doctor says that you can: ? NSAIDs. These include: ? Ibuprofen. ? Naproxen. ? Vitamin supplements that have vitamin A, vitamin E, or both. ? Hormone therapy that contains estrogen with or without progestin. Eating and drinking Eat a heart-healthy diet that includes: ? Lots of fresh fruits and vegetables. ? Whole grains. ? Low-fat (lean) protein. ? Low-fat dairy products. Follow instructions from your doctor about what you cannot eat or drink. Activity Follow an exercise program that your doctor tells you. Talk with your doctor about joining a program to help improve the health of your heart (cardiac rehab). When you feel tired, take a break. Plan breaks if you know you are going to feel tired. Lifestyle Do not use any products that contain nicotine or tobacco. This includes cigarettes, e-cigarettes, and chewing tobacco. If you need help quitting, ask your doctor. If your doctor says you can drink alcohol: ? Limit how much you use to: ? 0 1 drink a day for women who are not . ? 0 2 drinks a day for men. ? Be aware of how much alcohol is in your drink. In the [place] one drink equals: ? One 12 oz bottle of beer (355 mL). ? One 5 oz glass of wine (148 mL). ? One 1 oz glass of hard liquor (44 mL). General instructions Stay at a healthy weight. If your doctor tells you to do so, work with him or her to lose weight. Learn to deal with stress. If you need help, ask your doctor. Keep your vaccines up to date. Get a flu shot every year. Talk with your doctor if you feel sad. Take a screening test to see if you are at risk for depression. Work with your doctor to manage any other health problems that you have. These may include diabetes or high blood pressure. Keep all follow-up visits as told by your doctor. This is important. Get help right away if: You have pain in your chest, neck, arm, jaw, or back, and the pain: ? Lasts more than a few minutes. ? Comes back. ? Does not get better after you take medicine under your tongue (sublingual nitroglycerin). ? Keeps getting worse. ? Comes more often. You have any of these problems for no reason: ? Sweating a lot. ? Heartburn or upset stomach. ? Shortness of breath. ? Trouble breathing. ? Feeling sick to your stomach. ? Throwing up (vomiting). ? Feeling more tired than normal. ? Feeling nervous or worrying more than normal. ? Weakness. You are suddenly dizzy or light-headed. You pass out. These symptoms may be an emergency. Do not wait to see if the symptoms will go away. Get medical help right away. Call your local emergency services (911 in the [place] Do not drive yourself to the hospital. Summary Angina is very bad discomfort or pain in the chest, neck, arm, neck, or back. Symptoms include chest pain, heartburn or upset stomach for no reason, and shortness of breath. Women or people with diabetes may have symptoms that are not usual, such as feeling nervous or worried for no reason, weak for no reason, or tired. Take all medicines only as told by your doctor. You should eat a heart-healthy diet and follow an exercise program. This information is not intended to replace advice given to you by your health care provider. Make sure you discuss any questions you have with your health care provider. Document Released: 09/30/2008 Document Revised: 11/30/2018 Document Reviewed: 11/30/2018 [employer] Patient Education 2020 [employer]. Pharmacologic Stress Echocardiogram, Care After This sheet gives you information about how to care for yourself after your procedure. Your health care provider may also give you more specific instructions. If you have problems or questions, contact your health care provider. What can I expect after the procedure? You should not get new symptoms after your procedure. Talk with your health care provider if you experience unusual symptoms at home. Follow these instructions at home: After your stress test, you should be able to return to your usual activities and diet. Take nptl-nme-vnnrcvj and prescription medicines only as told by your health care provider. Keep all follow-up visits as told by your health care provider. This is important. Contact a health care provider if: Your skin is red, swollen, or itchy where the IV tube was inserted into your vein (injection site). You feel dizzy or light-headed, especially if the sensation does not go away or it gets worse. You have a fast or irregular heartbeat. You have nausea or vomiting that does not go away. You feel short of breath. Get help right away if: You develop pain or pressure: ? In your chest. ? In your jaw or neck. ? Between your shoulder blades. ? Spreading (radiating) down your left arm. You faint. You have trouble breathing. This information is not intended to replace advice given to you by your health care provider. Make sure you discuss any questions you have with your health care provider. Document Released: 02/02/2014 Document Revised: 12/18/2016 Document Reviewed: 12/18/2016 [employer] Patient Education 2020 [employer] Additional Information VACCINATE! IT SAVES LIVES! Members of the community who have not yet received the COVID-19 vaccine and would like to receive it can visit one of [facility] vaccine clinics. There are many vaccine clinic locations within the [facility]. For locations and available times, please visit [email or web address] [email or web address] It is important to note that some COVID mobile vaccine clinics are held outdoors and may be canceled in rainy or stormy conditions. To learn more about pediatric vaccinations (ages 5-11), we invite you to visit the [facility] webpage. [email or web address] To learn more about the COVID-19 vaccine, we invite you to visit the [facility] website for a list of frequently asked questions. [email or web address] [facility] Patient Portal Access Instructions: Stay connected with your healthcare team and access your personal medical information anytime with the [facility] Patient Portal.If you would like a full copy of your medical records, please contact the [facility] Medical Records Department, Friday through Friday between 8a.m. and 4:30p.m. Please follow the directions below to access the portal: 1.Access the email account you provided upon registration to the [facility].2.Look for an invitation email from [facility].3.Open the email and access the invitation link: Accept Invitation to [facility].Fill in the required cordero to create your account. Sign into [email or web address] First with your username and password that you created in the above steps to stay up to date. You can then view a summary of results, a summary of your visits, and the ability to download your summaries to your computer or send the information securely to a physician. Remember that your healthcare information is confidential, so carefully consider who you will allow to register on the [employer] Patient Portal for access to your information. You can also access the [facility] Patient Portal on the [employer] onel. Simply click on Health Records under [employer] and then click on the [employer] logo. HOW TO SAFELY DISPOSE OF PRESCRIPTION MEDICATIONS Please use one of the following methods to safely dispose of your unused medications. 1.Use a drug disposal kit: the drug disposal pouch allows you to safely discard your old and unused drugs. Ask your nurse to give you one when you are discharged.2.Visit a local take-back location: Many local pharmacies and police departments have programs that collect old and unwanted prescription drugs. Call your local pharmacy or go to http://Poptip.SpaceClaim/0E7Mo6e to find one close to you.3.Make use of household items: Use cat litter or old coffee grounds to dispose medications if other options are not available. Mix your drugs with these household products, seal them in an airtight container and throw it into the garbage. Call [facility]: [phone] to be sure your drugs can be disposed of in this way. Some medicines may require a different approach.4.Never flush your medications down the toilet. IF YOU HAVE BEEN PRESCRIBED AN OPIOID FOR PAIN If you have been prescribed an opioid (such as hydrocodone, oxycodone or morphine), it is critical to understand the possible side effects and risks of opioid pain medications. Even when taken as directed, opioids can have several side effects including: Tolerance, meaning you might need to take more of a medication for the same pain relief. Nausea, vomiting and/or constipation. Sleepiness, dizziness, dry mouth, confusion, depression or itching. Physical dependence, meaning you have withdrawal symptoms when a medication is stopped, can develop within a few days. KNOW YOUR RESPONSIBILITIES It is important to know exactly how much and how often to take the opioid pain medications you are prescribed. Never take opioids in higher amounts or more often than prescribed. Do not combine opioids with alcohol or other drugs that cause drowsiness, such as benzodiazepines, also known as benzos, including diazepam and alprazolam, muscle relaxants or sleep aids. Never sell or share prescription opioids. This is illegal. Store opioids in a secure place and out of reach of others (including children, family, friends and visitors). The last page of this document has been signed and retained as a CHART COPY. Signatures Patient Education Materials Angina, Zbam-qa-Enrb Pharmacologic Stress Echocardiogram, Care After Medication Leaflets nitroglycerin (oral/sublingual) My discharge plan and instructions have been reviewed and explained to me and I,YOAV JUDD V understand my current condition and have read and understand these discharge instructions. I have received a written copy of the plan/instructions. If I have questions, I am aware that I should contact my doctor. Patient/Mirror Maker Signature: Date/Time: Relationship to Patient: Witness Name/Signature: Date/Time: [facility] 04-06-2022 Discharge summary Date of Service 04/06/2022 Discharge Diagnosis 1. Atypical chest pain 2. CAD status post PCI to D1 3. Hypertension 4. Hyperlipidemia 5. Diabetes Chest pain ([id number] - PNED) Hospital Course 72-year-old overweight gentleman with significant past medical history of CAD (s/p PCI to D1, residual 50% distal LAD), systemic hypertension, dyslipidemia, type 2 diabetes, preserved LVEF, carpal tunnel surgery, osteoarthritis, anxiety and depression who presented to [facility] on 04/05/2022. Patient was diagnosed with atypical chest pain. He underwent Lexiscan stress test on 04/06/2022. Lexiscan stress test does did not reveal any reversible perfusion defect. LVEF was estimated to be around 67%. Echocardiogram done on 04/06/2022 did not reveal any valvular abnormalities. Normal EF. Since patient, has stable CAD as established by stress test done during this admission, we will discontinue his metoprolol. Patient is fatigue/shortness of breath/lightheadedness/dizziness may be secondary to the metoprolol. We will trial him off the metoprolol and see if his symptoms improve. Will also do a CardioNet study to evaluate for any arrhythmias. For now, we will continue him on Imdur. Patient's chest pain was deemed atypical in nature due to negative cardiac work-up. Patient's chest pain was reproducible with palpation. On the day of discharge (04/06/2022), patient was seen examined, he denies any chest discomfort or significant shortness of breath at rest or even on light ambulation. Denies any lightheadedness or dizziness at rest or even on light ambulation. No palpitations or chest fluttering. Denies any numbness or weakness in any of his extremities. Denies any fever/chill/sweat/coughing spells. No GI complaints. No urine complaints. Follow-up with PCP within 2-4 days. Follow-up with cardiology in the outpatient setting. Nuclear medicine stress test done on 04/06/2022 REPORT:This is a good quality study. There is some bowel artifact noted. Review tomographic images reveals no fixed or reversible defects. Gated study demonstrates normal wall motion and thickening with an ejection fraction of 67% IMPRESSION:Negative tomographic images for ischemia or infarction. The gated study demonstrates normal wall motion normal ejection fract Allergies NKA No Known Medication Allergies Procedures Lexiscan EKG/nuclear medicine stress test Consults Consult to Spiritual Care Team (Consult to Pastoral Care) - Ordered -- 04/06/22 0:13:49 EST Imaging Results and Diagnostics NM Myocardial Spect Rest/Stress Result Date: April 06, 2022 Verified By: ARIN GALO MD CLINICAL STATEMENT: Chest Pain IMPRESSION: Negative tomographic images for ischemia or infarction. The gated study demonstrates normal wall motion normal ejection fraction. Compared to prior study dated 09/13/2020, there has been no change CT Spine Cervical w/o Contrast Result Date: April 05, 2022 Verified By: COLE MERRITT MD CLINICAL STATEMENT: IMPRESSION: No acute fracture of the cervical spine. XR Chest 1 View Result Date: April 05, 2022 Verified By: BRANDI SANTORO MD CLINICAL STATEMENT: IMPRESSION: No acute radiographic findings. I have personally reviewed the images of this examination and agree with theresident's finding and interpretation. Physical Exam Vitals and Measurements T: 36.4 C (Oral) TMIN: 36.4 C (Oral) TMAX: 36.6 C (Temporal Artery) HR: 61(Monitored) RR: 18 BP: 132/64 SpO2: 97% HT: 170.2 cm WT: 81 kg BMI: 27.96 Weight Dosing Weight: 81 kg (04/06/22) Dosing Weight: 82 kg (04/05/22) General: Patient is under no acute distress,and in no discomfort Head: Normocephalic, Atraumatic Eyes/Ear: Pupils are equal and reactive, No scleral icterus. Nose: Normal appearing nasal nares Mouth: Good oral hygiene, Moist oral mucosa, no pharyngeal erythema or exudates noted, undeviated uvula Neck: Supple, Nontender, No thyromegaly, No JVD, Midline trachea, No lymphadenopathy Chest: Reproducible chest wall pain with palpation, normal breathing effort, clear to auscultation bilaterally Cardiac: RRR, Normal S1-S2, No MGR Abdomen: Soft, Nontender, Normal active bowel sounds Back: No obvious deformities. Genitourinary: Deferred Extremity: Radial pulses 2+ B/L. Warm bilaterally, No pedal edema, no atrophy or skin changes noted Skin: No PATHOLOGIC moles, rashes, lesions or ulcers were noted other than what is listed above Neuro: Alert and Oriented 4, Cranial nerves II to XII grossly intact. No focal deficits grossly noted Psych: Pleasant, Good attention Pending Labs and Studies WBC: 8.7 10^3/mcL (04/06/22 03:41:00) RBC: 4.42 10^6/mcL Low (04/06/22 03:41:00) Hgb: 13.4 G/dL (04/06/22 03:41:00) Hct: 40.5 % (04/06/22 03:41:00) MCV: 91.6 fL (04/06/22 03:41:00) MCH: 30.4 pg (04/06/22 03:41:00) MCHC: 33.2 G/dL (04/06/22 03:41:00) RDW: 13.8 % (04/06/22 03:41:00) Platelet: 312 10^3/mcL (04/06/22 03:41:00) MPV: 7.7 fL (04/06/22 03:41:00) Monocyte Distribution Width: 20 (04/05/22 11:13:00) Neutrophil %: 50.5 % (04/06/22 03:41:00) Lymphocyte %: 35.9 % (04/06/22 03:41:00) Monocyte %: 9.9 % (04/06/22 03:41:00) Eosinophil %: 3.1 % (04/06/22 03:41:00) Basophil %: 0.6 % (04/06/22 03:41:00) Neutrophil, Absolute: 4.4 10^3/mcL (04/06/22 03:41:00) Lymphocyte, Absolute: 3.1 10^3/mcL (04/06/22 03:41:00) Monocyte, Absolute: 0.9 10^3/mcL (04/06/22 03:41:00) Eosinophil, Absolute: 0.3 10^3/mcL (04/06/22 03:41:00) Basophil, Absolute: 0 10^3/mcL (04/06/22 03:41:00) Erythrocyte Sed Rate: 6 mm/hr (03/12/22 09:31:00) Glucose Level: 86 mg/dL (04/06/22 03:41:00) Sodium Level: 135 mEq/L Low (04/06/22 03:41:00) Potassium Level: 4.1 mEq/L (04/06/22 03:41:00) Chloride: 101 mEq/L (04/06/22 03:41:00) CO2: 24 mEq/L (04/06/22 03:41:00) Electrolyte Balance: 10 mEq/L (04/06/22 03:41:00) BUN: 16 mg/dL (04/06/22 03:41:00) Creatinine Lvl (s): 1.06 mg/dL (04/06/22 03:41:00) BUN/Creatinine Ratio: 15.1 ratio (04/06/22 03:41:00) Calcium Lvl: 9.9 mg/dL (04/06/22 03:41:00) Total Protein: 7.3 G/dL (03/12/22 09:31:00) Albumin Level: 4.2 G/dL (03/12/22 09:31:00) Globulin: 3.1 G/dL (03/12/22 09:31:00) A/G Ratio: 1.4 ratio (03/12/22 09:31:00) Bili Total: 0.5 mg/dL (03/12/22 09:31:00) Alk Phos: 63 U/L (03/12/22 09:31:00) AST/SGOT: 21 U/L (03/12/22 09:31:00) ALT/SGPT: 25 U/L (03/12/22 09:31:00) GFR Non-: >60 (04/06/22 03:41:00) GFR : >60 (04/06/22 03:41:00) Hgb A1c: 5.6 % (03/12/22 09:31:00) Prostate Specific Antigen: 0.32 ng/mL (03/12/22 09:31:00) C-Reactive Protein: <0.4 (03/12/22 09:31:00) Cholesterol: 178 mg/dL (04/06/22 03:41:00) Triglycerides: 208 mg/dL High (04/06/22 03:41:00) HDL Cholesterol: 32 mg/dL Low (04/06/22 03:41:00) LDL Cholesterol: 104 mg/dL (04/06/22 03:41:00) N-Terminal proBNP: 66 pg/mL (04/05/22 12:28:00) Troponin I High Sensitivity: <2.50 (04/05/22 19:50:00) TSH: 0.831 mIU/mL (04/05/22 17:18:00) SARS-CoV-2 PCR: Cepheid Neg (04/05/22 17:18:00) FLU A PCR: Cepheid Neg (04/05/22 17:18:00) FLU B PCR: Cepheid Neg (04/05/22 17:18:00) RSV PCR: Cepheid Neg (04/05/22 17:18:00) Blood Glucose, Capillary: 98 mg/dL (04/06/22 17:21:00) Blood Glucose Testing Reason: Routine (04/06/22 16:27:00) Blood Glucose Interventions: Retest (04/06/22 17:21:00) Code Status Code Status - Ordered -- 04/05/22 16:02:00 EST, Full Code, Constant Order Admission Date 04/05/2022 Discharge Date 04/06/2022 Patient Instructions Please go to the emergency room if you experience any chest pain/chest discomfort/shortness of breath/fatigue/palpitations/ligh theadedness/dizziness/nausea/vom iting/fever/chills/sweats/coughi ng spells. ---Please return to the emergency room in case you experience any signs or symptoms that you may find troublesome to your health. Medications Unchanged aspirin (aspirin 81 mg oral delayed release tablet)1 tab(s) by mouth once a day. atorvastatin (atorvastatin 40 mg oral tablet)1 tab(s) by mouth once a day. cholecalciferol (Vitamin D3)1 tab(s) by mouth once a day. clopidogrel (clopidogrel 75 mg oral tablet)1 tab(s) by mouth once a day. escitalopram (escitalopram 20 mg oral tablet)1 tab(s) by mouth once a day. esomeprazole (NexIUM 40 mg oral delayed release capsule)1 cap by mouth two (2) times a day. fenofibrate (fenofibrate 145 mg oral tablet)1 tab(s) by mouth once a day. isosorbide mononitrate (isosorbide mononitrate 30 mg oral tablet, extended release)1 tab(s) by mouth once a day (in the morning). metFORMIN (metFORMIN 500 mg oral tablet (IR))1 tab(s) by mouth two (2) times a day. multivitamin (Multivitamin)1 tab(s) by mouth once a day. multivitamin with minerals (Emergen-C)1 tab by mouth three (3) times a day. nitroGLYcerin (nitroglycerin 0.4 mg sublingual tablet)1 tab(s) under the tongue every 5 minutes as needed for chest pain q 5min X3. Refills: 11. ranolazine (ranolazine 1000 mg oral tablet, extended release)1 tab(s) by mouth two (2) times a day. zinc gluconate (zinc (as gluconate) 50 mg oral tablet)1 tab(s) by mouth once a day. Discontinued metoprolol (metoprolol succinate 25 mg oral TABLET extended release)1 tab(s) by mouth once a day. Follow Up Follow Up with ARIN PLUNKETT MD, Internal Medicine, [facility] When Why: Call your PCP to get a hospital discharge follow-up in 2-4 days. Where: [facility] [address] [place] [address]- [phone] Follow Up Appointments No qualifying data available. Follow Up Labs/Studies Discharge Labs No Follow-up Labs Discharge Studies No Follow-up Studies Discharge Diet Discharge Diet - Ordered -- Type of Diet: Regular Diet, Diet Restrictions: Cardiac diet, Calories Permitted: 1800 kcal, Sodium limit: 2 gm, Fats limit: Low, 04/06/22 17:27:00 EST Discharge Activity Discharge Activity - Ordered -- Activity As Tolerated, 04/06/22 17:27:00 EST Condition on Discharge Stable. Under no hemodynamic compromise. Under no respiratory distress. Discharge Disposition Home Time Spent Discharge plan was discussed with Dr. Galo. Any changes in assessment/plan, will be added as an addendum to this note by the attending physician. I have reviewed all available EKGs, echocardiograms, stress test and cardiac catheterizations. Relevant laboratory data have also been reviewed. This note was transcribed via voice recognition software. Please, forgive any errors or typos, resulting from the use of this technology. Digitally Signed by HELLEN ALCARAZ MD on 04/06/2022 06:22 PM Digitally Signed by ARIN GALO MD [facility] 04-06-2022 Note ORIGINAL NM MYOCARDIAL SPECT STRESS/REST CLINICAL STATEMENT: Chest Pain TECHNIQUE: Lexiscan dose:0.4 mg Radiopharmaceutical (stress): Tc-99m Sestamibi Dose:22 mCi Radiopharmaceutical (rest): Tc-99m Sestamibi Dose:8.8 mCi SPECT acquisition and processing Reconstruction and reorientation of SPECT images into short axis, vertical and horizontal long axis planes Quantitative LVEF assessment COMPARISON:09/14/2019 REPORT:This is a good quality study. There is some bowel artifact noted. Review tomographic images reveals no fixed or reversible defects. Gated study demonstrates normal wall motion and thickening with an ejection fraction of 67% IMPRESSION:Negative tomographic images for ischemia or infarction. The gated study demonstrates normal wall motion normal ejection fraction. Compared to prior study dated 09/13/2020, there has been no change Interpreted By: Arin Galo MD Preliminary Report By: Arin Galo MD Electronically Signed By: Arin Galo MD Dictated Date: 04/06/2022 1:08:06 PM Prelim Date: 04/06/2022 1:08:06 PM Sign Date: 04/06/2022 1:09:12 PM Ordering Provider:[facility] 04-06-2022 Note ORIGINAL NM MYOCARDIAL SPECT STRESS/REST CLINICAL STATEMENT: Chest Pain TECHNIQUE: Lexiscan dose:0.4 mg Radiopharmaceutical (stress): Tc-99m Sestamibi Dose:22 mCi Radiopharmaceutical (rest): Tc-99m Sestamibi Dose:8.8 mCi SPECT acquisition and processing Reconstruction and reorientation of SPECT images into short axis, vertical and horizontal long axis planes Quantitative LVEF assessment COMPARISON:09/14/2019 REPORT:This is a good quality study. There is some bowel artifact noted. Review tomographic images reveals no fixed or reversible defects. Gated study demonstrates normal wall motion and thickening with an ejection fraction of 67% IMPRESSION:Negative tomographic images for ischemia or infarction. The gated study demonstrates normal wall motion normal ejection fraction. Compared to prior study dated 09/13/2020, there has been no change Interpreted By: Arin Galo MD Preliminary Report By: Arin Galo MD Electronically Signed By: Arin Galo MD Dictated Date: 04/06/2022 1:08:06 PM Prelim Date: 04/06/2022 1:08:06 PM Sign Date: 04/06/2022 1:09:12 PM Ordering Provider:[facility] 04-06-2022 Note Chief Complaint Transition plan Transitional Action Points Patient hospitalized with unstable angina. This is his second hospitalization in the past 12 months He does have a planned stress tests today Is from home with his . We will continue to follow due to his age and hospitalization high-risk of weakness. No need for physical therapy consult at this time however we will follow. States he falls with PCP approximately every 3-6 months Assessment/Plan Angina Debility Readmission Risk Points Age greater than 65 Angina HTN History of Present Illness Patient is a 72-year-old male here for unstable angina. This is his second hospitalization last 12 months. Does have plans for stress test today. He resides at home with his . Not currently receiving PT/OT. Review of Symptoms General: Denies fever or chills HEENT: Denies blurry vision, headache, congestion Respiratory: Denies shortness of breath or cough Cardio: Denies chest pain or palpations GI: Denies abdominal pain or change in appetite Musculoskeletal: Denies injury Neuro: Denies dizziness or confusion Psych: Denies depression or anxiety Physical Exam General: No acute distress, lying in bed, appears comfortable HEENT: Oral mucosa moist, eyes following movement Skin: Scattered abrasions Extremities: No lower extremity edema, pulses present Musculoskeletal: Weakness present Neurological: No tremors or focal deficit Psych: mood cooperative Vitals Signs(Last 24 hrs)__Last Charted Minimum Maximum Temp36.5(APR 06:)36.5(APR 06:)36.5(APR 06:) Heart RateL 57(APR 06 08:03)L 56(APR 06 01:30)73(APR 06 03:00) Resp Rate18(APR 06:)L 12(APR 05 15:21)18(APR 05 11:24) IMJ836(APR 06:)115(APR 06 00:14)135(APR 05:) DBP82(APR 06:)L 55(APR 06 03:00)83(APR 05:21) Problem List/ Past Medical History CAD in [place] artery Chest pain Chronic diastolic HF (heart failure) Diabetes Dyslipidemia Glasses Hypercholesterolemia No qualifying data available. Procedure/ Surgical History Functional endoscopic sinus surgery: 07/13/21 Echocardiogram: 11/29/20 Cardiac catheterization: 11/10/20 Stress testing using pharmacologic-induced stress: 09/13/20 Cataracts Carpal tunnel Appendectomy; Medication List Active Medications Ordered acetaminophen: 650 mg, 2 tab(s), Oral, q4h, PRN: Pain, non-cardiac. albuterol-ipratropium: 3 mL, Inhalation, q4hRT, PRN: decreased breath sounds. aspirin: 81 mg, 1 tab(s), Oral, qDay. cholecalciferol: 25 mcg, 1 tab(s), Oral, qDay. clopidogrel: 75 mg, 1 tab(s), Oral, qDay. escitalopram: 20 mg, 1 tab(s), Oral, qDay. fenofibrate: 160 mg, 1 tab(s), Oral, qDay. insulin lispro (HumaLOG): Give 0-15 units/dose, Subcutaneous, TIDAC. melatonin: 3 mg, 1 tab(s), Oral, qHS, PRN: Sleep. metoprolol: 25 mg, 1 tab(s), Oral, qDay. nitroGLYcerin: 0.4 mg, 1 tab(s), Sublingual, q5min, PRN: Chest pain. pantoprazole: 40 mg, 1 tab(s), Oral, BIDAC. pantoprazole: 40 mg, 1 tab(s), Oral, qDayAC, PRN: Reflux. polyethylene glycol 3350: 17 gram(s), 15 mL, Oral, qDay, PRN: Constipation. ranolazine: 1,000 mg, 2 tab(s), Oral, BID. Prescribed nitroGLYcerin: 0.4 mg, 1 tab(s), Sublingual, q5min, PRN: for chest pain q 5min X3, 25 tab(s), 11 Refill(s). Documented aspirin: 81 mg, 1 tab(s), Oral, qDay. atorvastatin: 40 mg, 1 tab(s), Oral, qDay. cholecalciferol: 1 tab(s), Oral, qDay, 0 Refill(s). clopidogrel: 75 mg, 1 tab(s), Oral, qDay. escitalopram: 20 mg, 1 tab(s), Oral, qDay. esomeprazole: 40 mg, 1 cap(s), Oral, BID, 0 Refill(s). fenofibrate: 145 mg, 1 tab(s), Oral, qDay, 0 Refill(s). isosorbide mononitrate: 30 mg, 1 tab(s), Oral, qAM. metFORMIN: 500 mg, 1 tab(s), Oral, BID, 0 Refill(s). metoprolol: 25 mg, 1 tab(s), Oral, qDay. multivitamin: 1 tab(s), Oral, qDay, 0 Refill(s). multivitamin with minerals: 1 tab, Oral, TID, 0 Refill(s). ranolazine: 1,000 mg, 1 tab(s), Oral, BID. zinc gluconate: 50 mg, 1 tab(s), Oral, qDay, 0 Refill(s). Medications Inactivated in the Last 72 Hours aspirin: 81 mg, 1 tab(s), Oral, qDay, 90 tab(s), 3 Refill(s). aspirin: 162 mg, 2 tab(s), Oral, Once. aspirin: 81 mg, 1 tab(s), Oral, qDay. atorvastatin: 40 mg, 1 tab(s), Oral, Daily, 90 tab(s), 3 Refill(s). cholecalciferol: 1 tab(s), Oral, qDay. clopidogrel: 75 mg, 1 tab(s), Oral, qDay, 90 tab(s), 3 Refill(s). escitalopram: 20 mg, 2 tab(s), Oral, Daily, 0 Refill(s). esomeprazole: 40 mg, 1 cap(s), Oral, BID. isosorbide mononitrate: 30 mg, 1 tab(s), Oral, qAM, 30 tab(s), 6 Refill(s). metoprolol: 25 mg, 1 tab(s), Oral, qDay, Do not crush or chew (controlled release), 180 tab(s), 3 Refill(s). ranolazine: 1,000 mg, 1 tab(s), Oral, BID, 180 tab(s), 3 Refill(s). Allergies NKA No Known Medication Allergies Social Hx Alcohol Details: Use: Current. Frequency: 1-2 times per month. Employment/School Details: Status: Retired. Home/Environment Details: Marital Status: . Nutrition/Health Details: Caffeine intake amount: Drinks 1 soda weekly. Substance Abuse Details: Use: Never. Tobacco Details: Nicotine Use: Never (less than 100 in lifetime). Family Medical Hx Father (): Angina Code Status Code Status - Ordered -- 04/05/22 16:02:00 EST, Full Code, Constant Order Eusebio Chandler LPN, am scribing for Rashad Gardner NP, in the presence of Rashad Gardner. Eusebio Gardner NP, personally performed the services described in this documentation, as described by Carl Chandler LPN in my presence and it is both accurate and complete. This document is transcribed using voice recognition software may contain typographical errors. Digitally Signed by RASHAD GARDNER on 04/06/2022 06:21 PM [facility] 04-06-2022 History and physical note Chief Complaint From home w , Left sided CP w SOb worse w ambulation X 2 weeks. Pain got worse today while walking and called cards and was told to come to ER History of Present Illness 72-year-old male with known history of CAD status post PCI to D1 with residual 50% LAD disease, hypertension, hyperlipidemia, diabetes Patient was at cardiac rehab today and felt chest pain as well as having a blood blood pressure of 80/50. He states that over the past several weeks he has had intermittent chest pain. Currently he rates his chest pain as 2 out of 10. He denies feeling sick recently. During cardiac rehab was the worst his chest pain had previously felt. During interview patient also complains of being lightheaded during the end. 1 year ago patient had a heart cath with 70% diagonal disease and patient underwent PCI. He was found to have 50% LAD disease which is being treated medically. He is currently on beta-justo, Ranexa, Imdur as well as aspirin and Plavix. Work-up in the ED notable for negative troponin x1, negative BNP. Normal CBC and BMP. EKG within normal limits. Review of Systems Constitutional: Negative for fever, negative for fatigue, negative for chills, negative for weight changes HEENT: Negative for reported sleep apnea, negative for swollen neck glands Cardiovascular: Negative for chest pain, negative for palpitations, negative for lightheadedness/syncope, negative for orthopnea, negative for lower extremity swelling Respiratory: Negative for shortness of breath at rest, negative for shortness of breath with activity, for cough, negative for wheezing Gastrointestinal: Negative for abdominal pain, negative for nausea, negative for melena, negative for hematochezia Genitourinary: Negative for dysuria, negative for urgency, negative for urinary frequency Musculoskeletal: Negative for back pain, negative for abnormal joint pains, negative for unusual muscle pains Skin: Negative for rashes, negative for ulcers Neurological: Negative for facial droop, negative for focal numbness, negative for weakness Psychiatric: Negative for anxiety, negative for depression Endocrine: Negative for hot flashes, negative for excessive thirst Hematologic/Lymphatic: No easy bruising, no unusual bleeding Physical Exam Vitals and Measurements T: 36.5 C (Temporal Artery) HR: 59 RR: 12 BP: 135/83 SpO2: 96% WT: 82 kg Weight Dosing Weight: 82 kg (04/05/22) GENERAL: Well nourished; no acute distress. PSYCHIATRIC: Alert and oriented x 3, cooperative, mood normal, affect normal. HEAD: Normocephalic, nontraumatic head. EYES: Pupils equal, round, and reactive to light; conjunctiva clear bilaterally. Lids within normal limits. NECK: Supple, no posterior midline tenderness. Normal range of motion. No thyromegaly noted. CARDIAC: Regular rate, regular rhythm, no murmurs noted. RESPIRATORY: Regular rate and depth; no distress, RIGHT lung clear, LEFT lung clear. Breath sounds normal. ABDOMEN: Soft, nontender. Normal bowel sounds. EXTREMITIES: No trace lower extremity pitting edema. No lymphedema. Dorsalis Pedis pulse +2/4 bilaterally. Posterior Tibialis pulse +2/4 bilaterally. NEURO: Moves all extremities DERM: Warm and dry. Normal turgor. No observed exanthem. No significant dandruff. Lab Results 04/05 12:28 Glucose Level: 93 Sodium Level: 136 Potassium Level: 4.8 BUN: 22.0 Creatinine Lvl (s): 1.15 04/05 11:13 WBC: 7.3 Hgb: 13.3 Hct: 39.9 L Platelet: 340 Neutrophil %: 54.5 EKG EC04/05/22: SINUS RHYTHM...normal P axis, V-rate 50- 99 Compared to ECG at 12/06/2020 13:51:09 Electronic Signature: DRAGANRACHEL 04/05/2022 15:11:37 Assessment/Plan 1. Chest pain 2. CAD status post PCI to D1 3. Hypertension 4. Hyperlipidemia 5. Diabetes Patient presented with episode of chest pain during cardiac rehab as well as low blood pressure. Palpation of chest elicits pain. Patient has negative troponin x1. At this point have low suspicion that patient's chest pain is secondary to ischemia. We will admit patient and continue to monitor. He will go for nuclear medicine stress test tomorrow assuming the second troponin is negative. We will also order an echocardiogram for further evaluation. Holding Imdur as patient had hypotension during cardiac rehab. We will continue low-dose beta-justo and Ranexa. Continue aspirin, statin, Plavix. Problem List/Past Medical History Ongoing CAD in [place] artery Chest pain Chronic diastolic HF (heart failure) Diabetes Dyslipidemia Historical No qualifying data Procedure/Surgical History Functional endoscopic sinus surgery: 07/13/21 Echocardiogram: 11/29/20 Cardiac catheterization: 11/10/20 Stress testing using pharmacologic-induced stress: 09/13/20 Cataracts Carpal tunnel Appendectomy; Medications Home Medications (15) Active aspirin 81 mg oral delayed release tablet 81 mg = 1 tab(s), Oral, qDay atorvastatin 40 mg oral tablet 40 mg = 1 tab(s), Oral, qDay clopidogrel 75 mg oral tablet 75 mg = 1 tab(s), Oral, qDay Emergen-C 1 tab, Oral, TID escitalopram 20 mg oral tablet 20 mg = 1 tab(s), Oral, qDay fenofibrate 145 mg oral tablet 145 mg = 1 tab(s), Oral, qDay isosorbide mononitrate 30 mg oral tablet, extended release 30 mg = 1 tab(s), Oral, qAM metFORMIN 500 mg oral tablet (IR) 500 mg = 1 tab(s), Oral, BID metoprolol succinate 25 mg oral TABLET extended release 25 mg = 1 tab(s), Oral, qDay Multivitamin 1 tab(s), Oral, qDay NexIUM 40 mg oral delayed release capsule 40 mg = 1 cap(s), Oral, BID nitroglycerin 0.4 mg sublingual tablet 0.4 mg = 1 tab(s), PRN, Sublingual, q5min ranolazine 1000 mg oral tablet, extended release 1,000 mg = 1 tab(s), Oral, BID Vitamin D3 1 tab(s), Oral, qDay zinc (as gluconate) 50 mg oral tablet 50 mg = 1 tab(s), Oral, qDay Allergies NKA No Known Medication Allergies Social History Alcohol Use: Current. Frequency: 1-2 times per month., 11/01/2020 Employment/School Status: Retired., 12/18/2020 Home/Environment Marital Status: ., 12/18/2020 Nutrition/Health Caffeine intake amount: Drinks 1 soda weekly., 11/01/2020 Substance Abuse Use: Never., 11/01/2020 Tobacco Nicotine Use: Never (less than 100 in lifetime)., 10/31/2020 Family History Angina: Father. Immunizations SARS-CoV-2 (COVID-19) mRNA-1273 vaccine: 50 mcg (05/04/21) SARS-CoV-2 (COVID-19) mRNA-1273 vaccine: 100 mcg (07/31/20) SARS-CoV-2 (COVID-19) mRNA-1273 vaccine: 100 mcg (07/03/20) Code Status Code Status - Ordered -- 04/05/22 16:02:00 EST, Full Code, Constant Order Digitally Signed by MATTHEW MARKHAM MD on 04/05/2022 04:50 PM [facility] 04-05-2022 Note ORIGINAL EXAMINATION: CT OF THE CERVICAL SPINE WITHOUT CONTRAST 04/05/2022 6:50 pm TECHNIQUE: CT of the cervical spine was performed without the administration of intravenous contrast. Multiplanar reformatted images are provided for review. Automated exposure control, iterative reconstruction, and/or weight based adjustment of the mA/kV was utilized to reduce the radiation dose to as low as reasonably achievable. COMPARISON: None. HISTORY: ORDERING SYSTEM PROVIDED HISTORY: Reason for Exam: l arm numbness into hand, hx of carpal tunnel hand numbness/pain FINDINGS: BONES/ALIGNMENT: Mild reversal of the lordotic curvature centered at C5-C6, favored to be degenerative. There is no acute fracture or traumatic malalignment. DEGENERATIVE CHANGES: Multilevel degenerative changes although particularly centered at C5-C6 and C6-C7 without high-grade spinal canal stenosis or neural foraminal narrowing. SOFT TISSUES: There is no prevertebral soft tissue swelling. Scattered subcentimeter short axis cervical chain lymph nodes bilaterally, nonspecific. Calcified granuloma the right lung apex. IMPRESSION: No acute fracture of the cervical spine. Interpreted by: Cole Merritt Preliminary Report By: Cole Merritt Electronically signed By Cole Merritt Dictated Date: 04/05/2022 7:08:10 PM Prelim Date: 04/05/2022 7:10:41 PM Sign Date: 04/05/2022 7:10:41 PM Ordering Provider: LAITH ZAPIEN [facility] 04-05-2022 Note ORIGINAL EXAMINATION: CT OF THE CERVICAL SPINE WITHOUT CONTRAST 04/05/2022 6:50 pm TECHNIQUE: CT of the cervical spine was performed without the administration of intravenous contrast. Multiplanar reformatted images are provided for review. Automated exposure control, iterative reconstruction, and/or weight based adjustment of the mA/kV was utilized to reduce the radiation dose to as low as reasonably achievable. COMPARISON: None. HISTORY: ORDERING SYSTEM PROVIDED HISTORY: Reason for Exam: l arm numbness into hand, hx of carpal tunnel hand numbness/pain FINDINGS: BONES/ALIGNMENT: Mild reversal of the lordotic curvature centered at C5-C6, favored to be degenerative. There is no acute fracture or traumatic malalignment. DEGENERATIVE CHANGES: Multilevel degenerative changes although particularly centered at C5-C6 and C6-C7 without high-grade spinal canal stenosis or neural foraminal narrowing. SOFT TISSUES: There is no prevertebral soft tissue swelling. Scattered subcentimeter short axis cervical chain lymph nodes bilaterally, nonspecific. Calcified granuloma the right lung apex. IMPRESSION: No acute fracture of the cervical spine. Interpreted by: Cole Merritt Preliminary Report By: Cole Merritt Electronically signed By Cole Merritt Dictated Date: 04/05/2022 7:08:10 PM Prelim Date: 04/05/2022 7:10:41 PM Sign Date: 04/05/2022 7:10:41 PM [facility] 04-05-2022 History and physical note Chief Complaint From home w , Left sided CP w SOb worse w ambulation X 2 weeks. Pain got worse today while walking and called cards and was told to come to ER History of Present Illness 72-year-old male with known history of CAD status post PCI to D1 with residual 50% LAD disease, hypertension, hyperlipidemia, diabetes Patient was at cardiac rehab today and felt chest pain as well as having a blood blood pressure of 80/50. He states that over the past several weeks he has had intermittent chest pain. Currently he rates his chest pain as 2 out of 10. He denies feeling sick recently. During cardiac rehab was the worst his chest pain had previously felt. During interview patient also complains of being lightheaded during the end. 1 year ago patient had a heart cath with 70% diagonal disease and patient underwent PCI. He was found to have 50% LAD disease which is being treated medically. He is currently on beta-justo, Ranexa, Imdur as well as aspirin and Plavix. Work-up in the ED notable for negative troponin x1, negative BNP. Normal CBC and BMP. EKG within normal limits. Review of Systems Constitutional: Negative for fever, negative for fatigue, negative for chills, negative for weight changes HEENT: Negative for reported sleep apnea, negative for swollen neck glands Cardiovascular: Negative for chest pain, negative for palpitations, negative for lightheadedness/syncope, negative for orthopnea, negative for lower extremity swelling Respiratory: Negative for shortness of breath at rest, negative for shortness of breath with activity, for cough, negative for wheezing Gastrointestinal: Negative for abdominal pain, negative for nausea, negative for melena, negative for hematochezia Genitourinary: Negative for dysuria, negative for urgency, negative for urinary frequency Musculoskeletal: Negative for back pain, negative for abnormal joint pains, negative for unusual muscle pains Skin: Negative for rashes, negative for ulcers Neurological: Negative for facial droop, negative for focal numbness, negative for weakness Psychiatric: Negative for anxiety, negative for depression Endocrine: Negative for hot flashes, negative for excessive thirst Hematologic/Lymphatic: No easy bruising, no unusual bleeding Physical Exam Vitals and Measurements T: 36.5 C (Temporal Artery) HR: 59 RR: 12 BP: 135/83 SpO2: 96% WT: 82 kg Weight Dosing Weight: 82 kg (04/05/22) GENERAL: Well nourished; no acute distress. PSYCHIATRIC: Alert and oriented x 3, cooperative, mood normal, affect normal. HEAD: Normocephalic, nontraumatic head. EYES: Pupils equal, round, and reactive to light; conjunctiva clear bilaterally. Lids within normal limits. NECK: Supple, no posterior midline tenderness. Normal range of motion. No thyromegaly noted. CARDIAC: Regular rate, regular rhythm, no murmurs noted. RESPIRATORY: Regular rate and depth; no distress, RIGHT lung clear, LEFT lung clear. Breath sounds normal. ABDOMEN: Soft, nontender. Normal bowel sounds. EXTREMITIES: No trace lower extremity pitting edema. No lymphedema. Dorsalis Pedis pulse +2/4 bilaterally. Posterior Tibialis pulse +2/4 bilaterally. NEURO: Moves all extremities DERM: Warm and dry. Normal turgor. No observed exanthem. No significant dandruff. Lab Results 04/05 12:28 Glucose Level: 93 Sodium Level: 136 Potassium Level: 4.8 BUN: 22.0 Creatinine Lvl (s): 1.15 04/05 11:13 WBC: 7.3 Hgb: 13.3 Hct: 39.9 L Platelet: 340 Neutrophil %: 54.5 EKG EC04/05/22: SINUS RHYTHM...normal P axis, V-rate 50- 99 Compared to ECG at 12/06/2020 13:51:09 Electronic Signature: RACHEL ARCHIBALD 04/05/2022 15:11:37 Assessment/Plan 1. Chest pain 2. CAD status post PCI to D1 3. Hypertension 4. Hyperlipidemia 5. Diabetes Patient presented with episode of chest pain during cardiac rehab as well as low blood pressure. Palpation of chest elicits pain. Patient has negative troponin x1. At this point have low suspicion that patient's chest pain is secondary to ischemia. We will admit patient and continue to monitor. He will go for nuclear medicine stress test tomorrow assuming the second troponin is negative. We will also order an echocardiogram for further evaluation. Holding Imdur as patient had hypotension during cardiac rehab. We will continue low-dose beta-justo and Ranexa. Continue aspirin, statin, Plavix. Problem List/Past Medical History Ongoing CAD in [place] artery Chest pain Chronic diastolic HF (heart failure) Diabetes Dyslipidemia Historical No qualifying data Procedure/Surgical History Functional endoscopic sinus surgery: 07/13/21 Echocardiogram: 11/29/20 Cardiac catheterization: 11/10/20 Stress testing using pharmacologic-induced stress: 09/13/20 Cataracts Carpal tunnel Appendectomy; Medications Home Medications (15) Active aspirin 81 mg oral delayed release tablet 81 mg = 1 tab(s), Oral, qDay atorvastatin 40 mg oral tablet 40 mg = 1 tab(s), Oral, qDay clopidogrel 75 mg oral tablet 75 mg = 1 tab(s), Oral, qDay Emergen-C 1 tab, Oral, TID escitalopram 20 mg oral tablet 20 mg = 1 tab(s), Oral, qDay fenofibrate 145 mg oral tablet 145 mg = 1 tab(s), Oral, qDay isosorbide mononitrate 30 mg oral tablet, extended release 30 mg = 1 tab(s), Oral, qAM metFORMIN 500 mg oral tablet (IR) 500 mg = 1 tab(s), Oral, BID metoprolol succinate 25 mg oral TABLET extended release 25 mg = 1 tab(s), Oral, qDay Multivitamin 1 tab(s), Oral, qDay NexIUM 40 mg oral delayed release capsule 40 mg = 1 cap(s), Oral, BID nitroglycerin 0.4 mg sublingual tablet 0.4 mg = 1 tab(s), PRN, Sublingual, q5min ranolazine 1000 mg oral tablet, extended release 1,000 mg = 1 tab(s), Oral, BID Vitamin D3 1 tab(s), Oral, qDay zinc (as gluconate) 50 mg oral tablet 50 mg = 1 tab(s), Oral, qDay Allergies NKA No Known Medication Allergies Social History Alcohol Use: Current. Frequency: 1-2 times per month., 11/01/2020 Employment/School Status: Retired., 12/18/2020 Home/Environment Marital Status: ., 12/18/2020 Nutrition/Health Caffeine intake amount: Drinks 1 soda weekly., 11/01/2020 Substance Abuse Use: Never., 11/01/2020 Tobacco Nicotine Use: Never (less than 100 in lifetime)., 10/31/2020 Family History Angina: Father. Immunizations SARS-CoV-2 (COVID-19) mRNA-1273 vaccine: 50 mcg (05/04/21) SARS-CoV-2 (COVID-19) mRNA-1273 vaccine: 100 mcg (07/31/20) SARS-CoV-2 (COVID-19) mRNA-1273 vaccine: 100 mcg (07/03/20) Code Status Code Status - Ordered -- 04/05/22 16:02:00 EST, Full Code, Constant Order Digitally Signed by MATTHEW MARKHAM MD on 04/05/2022 04:50 PM [facility] 1. Chest pain 2. CAD status post PCI to D1 3. Hypertension 4. Hyperlipidemia 5. Diabetes Patient presented with episode of chest pain during cardiac rehab as well as low blood pressure. Palpation of chest elicits pain. Patient has negative troponin x1. At this point have low suspicion that patient's chest pain is secondary to ischemia. We will admit patient and continue to monitor. He will go for nuclear medicine stress test tomorrow assuming the second troponin is negative. We will also order an echocardiogram for further evaluation. Holding Imdur as patient had hypotension during cardiac rehab. We will continue low-dose beta-justo and Ranexa. Continue aspirin, statin, Plavix. Addendum by ARNOLDO ZAPIEN MD on April 06, 2022 06:50:59 EST I have personally seen, examined, and evaluated the patient on the encounter date. I have reviewed the fellow s documentation and agree with the fellow s findings and plan as documented, unless otherwise stated. Chest pain appears to be musculoskeletal. Given his history of CAD, will observe overnight. Future Appointments Appointment Date:04/09/2022 02:00:00 PM Scheduled Provider:ITZEL MORALES PA-C Location:[facility] Appointment Type:[facility] Future Scheduled Tests Laboratory* Lipid Profile 03/14/22 * N-Terminal proBNP 09/17/21 [facility] 12-09-2022 Note ORIGINAL EXAMINATION: ONE XRAY VIEW OF THE CHEST 04/05/2022 11:00 am COMPARISON: 03/12/2022. HISTORY: ORDERING SYSTEM PROVIDED HISTORY: Reason for Exam: chest pain FINDINGS: Cardiomediastinal silhouette is normal. No focal consolidation, significant pleural effusion or pneumothorax. Persistent prominent bronchovascular markings are present, may be seen with chronic lung disease. No acute osseous or soft tissue findings. IMPRESSION: No acute radiographic findings. I have personally reviewed the images of this examination and agree with the resident's finding and interpretation. Interpreted by: Brandi Santoro MD Preliminary Report By: Marcin Lima Electronically signed By Brandi Santoro MD Dictated Date: 04/05/2022 11:05:05 AM Prelim Date: 04/05/2022 11:25:00 AM Sign Date: 04/05/2022 11:25:00 AM Ordering Provider: REGINA COWART [id number] Note ORIGINAL EXAMINATION: ONE XRAY VIEW OF THE CHEST 04/05/2022 11:00 am COMPARISON: 03/12/2022. HISTORY: ORDERING SYSTEM PROVIDED HISTORY: Reason for Exam: chest pain FINDINGS: Cardiomediastinal silhouette is normal. No focal consolidation, significant pleural effusion or pneumothorax. Persistent prominent bronchovascular markings are present, may be seen with chronic lung disease. No acute osseous or soft tissue findings. IMPRESSION: No acute radiographic findings. I have personally reviewed the images of this examination and agree with the resident's finding and interpretation. Interpreted by: Brandi Santoro MD Preliminary Report By: Marcin Lima Electronically signed By Brandi Santoro MD Dictated Date: 04/05/2022 11:05:05 AM Prelim Date: 04/05/2022 11:25:00 AM Sign Date: 04/05/2022 11:25:00 AM Ordering [facility] Future Appointments Future Scheduled Tests Laboratory* N-Terminal proBNP 09/17/21 [facility] Evaluation + Plan note Future Appointments Appointment Date:12/16/2022 09:30:00 AM Scheduled Provider: Location:[facility] Appointment Type:OT Treatment Appointment Date:12/20/2022 09:30:00 AM Scheduled Provider: Location:[facility] Appointment Type:OT Treatment Appointment Date:12/23/2022 09:30:00 AM Scheduled Provider: Location:[facility] Appointment Type:OT Treatment Appointment Date:12/27/2022 10:15:00 AM Scheduled Provider: Location:[facility] Appointment Type:OT Treatment Future Scheduled Tests Laboratory* Basic Metabolic Panel 11/17/22 * Lipid Profile 06/06/23 * Lipid Profile 03/06/23 * N-Terminal proBNP 11/17/22 * N-Terminal proBNP 06/06/23 [facility] Evaluation + Plan note Future Appointments Appointment Date:04/07/2023 09:00:00 AM Scheduled Provider: Location:[facility] Appointment Type:CV OV Future Scheduled Tests Laboratory* Basic Metabolic Panel 11/17/22 * Lipid Profile 06/06/23 * N-Terminal proBNP 11/17/22 * N-Terminal proBNP 06/06/23 [facility] Hospital course Narrative No data available for this section [facility] Hospital Discharge instructions No data available for this section [facility] Discharge Instructions No hospital discharge instructions. Summary Purpose Family History No Family History Records Found No data available for this section No data available for this section No Family History Records Found Advance Directives No Advanced Directives Records FoundNo Advanced Directives Records Found Additional Source Comments Care Team (unrecognized sect ion and content) Care Team Personnel Name: MICHAEL QUICK MD Position: P4 Physician - Cardiology Member Role: Payloader Machine Operator Address: Address: [address] [place] [address] [address] [place] [address] Name: ARIN PLUNKETT MD Position: Physician Member Role: Primary Care Physician Address: Address: [place] [address] [address] [place], [place] [id number] [place] [address] Name: Jerri De La Cruz RN Position: ED RN Member Role: ED RN Name: Vianey Sales remote broadcast engineer Position: PharmNet: Diesel Roller Operator/Tech Member Role: Records Management Director Name: RACHEL ARCHIBALD DO Position: ED Physician Member Role: ED Physician Address: Address: [address] [place] [address] [facility] [address] Name: REGINA COWART PA Position: ED Physician Alliance Director Member Role: ED PA Address: Address: [address] [place], [place] [address] Name: Mariaa Menezes PharmD (BCIDP, BCPS) Position: Pharmnet: Pharmacist Member Role: Pharmacist Care Team Related Persons Name: RACHEL JUDD Name: REZA (unrecognized sect ion and content) No Status Records FoundNo Status Records Found INFORMATION SOURCE (unrecogn ized section and content) DATE CREATED AUTHOR AUTHOR'S ORGANIZ ATION 04/17/2023 John Randolph [facility] Patient Care team informatio n (unrecognized section and content) Care Team Personnel Name: MICHAEL QUICK MD Position: P4 Physician - Cardiology Member Role: Payloader Machine Operator Address: Address: [address] [place] [address] [id number] Name: ARIN PLUNKETT MD Member Role: Primary Care Physician Address: Address: [facility] [address] [place], [place] [address] Care Team Related Persons Name: RACHEL JUDD Name: REZA Care Team Personnel Name: MICHAEL QUICK MD Position: P4 Physician - Cardiology Member Role: Payloader Machine Operator Address: Address: [address] [facility] [address] [facility] [place], [place] [address] Name: ARIN PLUNKETT MD Member Role: Primary Care Physician Address: Address: [facility] [address] [place], [place] [address] Care Team Related Persons Name: RACHEL JUDD Name: REZA JUDD FOR RECORDS PERTAINING TO PATIENTS WHO ARE OR HAVE BEEN ENROLLED IN A CHEMICAL DEPENDENCY/SUBSTANCEABUSE PROGRAM, SOME INFORMATION MAY BE OMITTED. This clinical summary was aggregated from multiple sources. Caution should be exercised in using it in the provision of clinical care. This summary normalizes information from multiple sources, and as a consequence, information in this document may materially change the coding, format and clinical context of patient data. In addition, data may be omitted in some cases. CLINICAL DECISIONS SHOULD BE BASED ON THE PRIMARY CLINICAL RECORDS. [employer] provides no warranty or guarantee of the accuracy or completeness of information in this document.
[2023-04-24 05:58] LABS: Hematocrit 41.2 % (40-54); Hemoglobin 13.3 g/dL (13.0-16.5); Mean Corp Hgb Conc 32.3 g/dL (32-36); Mean Corpuscular Hgb 29.5 pg (27.0-32.0); Mean Corpuscular Volume 91.4 fL (80-94); Mean Platelet Vol. 8.9 fl (6.2-12.0); Platelet Count 260 K/mm3 (150-450); RBC Distribution Width CV 12.7 % (11.6-14.6); RBC Distribution Width SD 42.4 fl (35.1-43.9); Red Blood Count 4.51 M/mm3 (4.6-6.2); White Blood Count 9.1 K/mm3 (4.4-11.0)
[2023-04-24] MEDS: Lactated Ringers 1,000 ML 15 ML IV (05:58)
[2023-04-24] MEDS: Cefazolin 2 GM in 0.9% Normal Saline (100mL Bag) 100 ML IV (07:29)
[2023-04-24] MEDS: Epinephrine (1 mg/ml) 1 MG/ML VIAL (08:05)
--- NOTE | 2023-04-24 10:18 | PCM.OPRPT ---
Report of Operation Description of Surgical Findings:: Preoperative diagnosis: 1. Left shoulder partial rotator cuff tear 2. Left shoulder subacromial impingement syndrome 3. Left shoulder type II SLAP tear 4. Symptomatic left shoulder symptomatic acromioclavicular joint osteoarthritis Postoperative diagnosis: 1. Left shoulder rotator cuff tear 2. Left shoulder subacromial impingement syndrome, subacromial bursitis 3. Left shoulder type II SLAP tear 4. Symptomatic left shoulder symptomatic acromioclavicular joint osteoarthritis 5. Grade IV chondromalacia humeral head 6. Left shoulder glenohumeral capsulitis Procedure: 1. Diagnostic and operative left shoulder arthroscopy with rotator cuff repair 2. Left shoulder subacromial decompression 3. Left shoulder mini open subpectoral long head of biceps tenodesis 4. Left shoulder arthroscopic distal clavicle excision 5. Extensive debridement left shoulder with debridement of capsular tissue, labrum, biceps labral junction, chondroplasty humeral head, subacromial bursa Primary Surgeon: Demetrio Rolon DO Chemical Processing Technician: Елена Fisher PA-C Anesthesia: General LMA with interscalene block Anesthesiologist: Franki Perry MD Complications: None apparent Specimen: None Estimated blood loss: 10 cc IV fluids: 1200 cc crystalloid Urine output: None Packing/drains: None Implants: Arthrex 4.75 mm swivel lock anchor x1, Arthrex biceps button x 1 Intraoperative findings: Type II SLAP tear, extensive right shoulder subacromial bursitis, greater than 50% supraspinatus tendon tearing, subacromial spur, AC joint arthritis Preoperative indications: This is a 73-year-old male seen the outpatient setting for left shoulder pain and weakness. He failed nonoperative management form of subacromial corticosteroid injection, Tylenol, activity modification, and physical therapy. MRI was obtained demonstrated findings consistent with subacromial impingement syndrome, SLAP tear, AC joint osteoarthritis, and interstitial delamination tearing of the supraspinatus. Given his failure of nonoperative treatment, I recommended surgical intervention in form of left shoulder diagnostic and operative arthroscopy with rotator cuff repair, subacromial decompression, distal clavicle excision, and mini open subpectoral biceps tenodesis. I reviewed the risks, benefits, alternatives the procedure with the patient. Risks included but were not limited to bleeding, infection, loss of life or limb, nonhealing tendon, persistent pain, persistent weakness, stiffness, need for prolonged immobilization, prolonged therapy, DVT or PE, risk of anesthesia, neurovascular injury, need for additional surgery. Patient expressed understanding these risks and wished to proceed with surgery. Description of procedure: Patient was identified in the preoperative holding area by name, medical record number, and date of . Informed consent was confirmed with the patient. The operative extremity was marked with a surgical marker. All questions were answered to the patient's satisfaction. An interscalene block was administered prior to the procedure by the anesthesia staff. At time of his procedure, patient was was brought to the operative suite and positioned supine on a standard operating table. General anesthesia was induced and LMA placed. Patient was then positioned in the lateral decubitus position with all bony prominences well-padded and an axillary roll was placed. He was held in position with a beanbag. We spun the bed approximately 20 degrees. We then prepped and draped the operative upper extremity in a normal, sterile orthopedic fashion. We performed a timeout with all parties in attendance in agreement with the side, site, and operation be performed. No concerns were voiced and we elected to proceed. 2 g Ancef was administered prior to the incision by anesthesia staff. Operative upper extremity was placed in traction utilizing a traction sleeve. 15 pounds was applied to the left upper extremity throughout the majority of the case. I first outlined the bony landmarks of the shoulder. I established a standard posterior portal with an 11 blade scalpel. Blunt tipped trocar in cannula was inserted into the glenohumeral joint. The joint was insufflated with normal saline solution with epinephrine in the first 2 bags. Trocar was removed and diagnostic arthroscopy was commenced. I established a standard interval portal anteriorly with localization via spinal needle. Capsular tissue in the rotator interval was hypertrophic and debrided with the cautery. Biceps anchor was probed with positive peelback test and tearing noted from the 10:00 to 2 o'clock position consistent with type II SLAP tear. Biceps tenotomy was performed at the biceps labral junction with cautery. Tendon retracted into the groove. Articular sided fraying of the supraspinatus was noted and debrided with a radial resector. Labral tearing and biceps labral fraying was debrided with a radial resector. Grade IV chondromalacia was noted in the humeral head. Abrasion chondroplasty was performed with radial sector 2 smooth chondral margins. The supraspinatus was then marked with a tagging 0 PDS suture. Arthroscopic instruments were removed. I reentered the shoulder subacromial space. Subacromial bursitis was noted. Bursitis was debrided with a radial resector after establishing a standard lateral portal. Undersurface of the acromion was skeletonized. Downsloping spur was noted. Type I acromion was then established via acromioplasty with arthroscopic bur. Supraspinatus tag suture was identified. Bursal sided cuff was probed and the probe fell easily through the tissue. The remaining cuff tissue was debrided establishing a full-thickness rotator cuff tear. The tear was crescent in shape. I proceeded with a ripstop type single anchor lateral row repair. A fiber tape was passed utilizing the retrograde scorpion suture passer through first the anterior and then posterior limbs of the crescent tear. We then passed a fiber loop medial to the fiber tape. These were then tensioned. They were passed through the eyelet of a 4.75 mm swivel lock anchor. I then selected a point approximately 5 mm lateral to the supraspinatus footprint. The Arthrex anchor punch was then passed in appropriate depth and withdrawn. The anchor was then placed and sutures tensioned. A swivel lock was impacted and subsequently tightened to an appropriate depth with excellent, appropriate tension of the suture. The tear appeared to reapproximate to its [place] footprint very well without excessive tension. There were no identifiable dogears. AC joint was then exposed releasing the anterior inferior aspect of the joint capsule with cautery. Distal clavicle excision was performed in standard fashion with the arthroscopic bur maintaining the superior and posterior aspects of the joint capsule. The subacromial space was then thoroughly lavaged. Arthroscopic instruments were removed. Portal sites were closed in interrupted [id number] fashion with 4-0 nylon suture. I then took the arm out of traction. A standard subpectoral approach was performed for tenodesis. An oblique incision was made along the inferior aspect of the pectoralis major tendon. Blunt dissection was carried down to level of fascia. Fascia was opened in line and slightly inferior to the pectoralis major. Long head biceps tendon was identified and retrieved out the wound. The interval between the pectoralis major and short of the biceps tendon was utilized. Whipstitch was performed at the biceps labral junction with #5 FiberWire. I drilled unicortically in the subpectoral region of the anterior humerus for an onlay tenodesis. [place] tip drill was removed. Suture was passed through the eyelet of a self locking biceps button. Button was then passed through the drill hole and flipped in the intramedullary canal of the humerus. Tension was applied through the system to tension the tenodesis with excellent tension of the biceps stump to the anterior humerus. Swedged suture was then cut and a single limb was passed through the tendon and tied for additional fixation. Sutures were cut. Wound was copiously irrigated normal saline solution. Field block was administered with 10 cc quarter percent plain bupivacaine. Dermis was reapproximated buried 3-0 Vicryl suture. Skin was finally approximated subcuticular 4-0 Monocryl and skin glue. Sterile compression dressing was applied. Patient was then placed in UltraSling. He was able to be safely extubated in the operative suite. He was transferred to his gurney and subsequently to PACU in stable condition. Postoperative plan: Patient will be nonweightbearing to the operative extremity. He should maintain his sling at all times unless to shower. He may shower on postoperative day #2 if no significant drainage. He will follow up in approximately 2 weeks for suture removal. Restart home aspirin and Plavix postoperative day #1. Prescription for oxycodone was sent to his pharmacy for postoperative analgesia.
== END 2023-04-24 11:09 | disposition home or self-care (01) ==
LOC: SDC 05:28 → AC 05:28
PROVIDERS: Anesthesiology; PCP Internal Medicine Adolescent Medicine; Referring Provider Student in an Organized Health Care Education/Training Program; Visit Provider Student in an Organized Health Care Education/Training Program
PROC: (CPT 29827; principal; 2023-04-24 07:10)
DX: M75.112 Incomplete rotator cuff tear or rupture of left shoulder, not specified as traumatic (principal); E11.9 Type 2 diabetes mellitus without complications; M75.42 Impingement syndrome of left shoulder; S43.432A Superior glenoid labrum lesion of left shoulder, initial encounter; M19.012 Primary osteoarthritis, left shoulder; M77.9 Enthesopathy, unspecified; M75.51 Bursitis of right shoulder; E78.00 Pure hypercholesterolemia, unspecified; G47.30 Sleep apnea, unspecified; F41.9 Anxiety disorder, unspecified; F32.A Depression, unspecified; K21.9 Gastro-esophageal reflux disease without esophagitis; I10 Essential (primary) hypertension; Z79.82 Long term (current) use of aspirin; Z79.899 Other long term (current) drug therapy; Z86.711 Personal history of pulmonary embolism; Z86.16 Personal history of COVID-19; X58.XXXA Exposure to other specified factors, initial encounter
CPT/HCPCS: 29824; 29827; 29826; 23430; 29806; 29823; 64415; 01630; 85027; C1713; J7120